=== PATIENT | female | born 1985 | race Caucasian/White ===

== ENCOUNTER 2018-04-21 00:02 | Emergency (ER) | payer OTHER, SELFPAY ==
[2018-04-21 01:02] LABS: Absolute Lymphocytes (CBC) 3.1 K/uL (0.7-4.9); Absolute Monocytes 0.5 K/uL (0.1-1.3); Basophils % 0.4 % (0-1.3); Eosinophils % 5.2 % (0-4.4); Hematocrit 41.6 % (36.0-45.0); Lymphocytes % 44.4 % (15.3-44.8); MPV 8.9 fL (7.6-11.3); Monocytes % 7.4 % (3.3-12.3); RBC Red Blood Cell Count 4.48 M/uL (3.86-4.86)
[2018-04-21 01:04] LABS: Protime INR 1.01
[2018-04-21] MEDS ORDERED: LIDOCAINE VISCOUS 2% SOLN 15 ML UDC ONE (01:05)
[2018-04-21] MEDS ORDERED: MAGNE/ALUM HYDROXD 30 ML UCUP ONE (01:05)
[2018-04-21 01:09] LABS: Albumin 3.5 g/dL (3.4-5.0); Bilirubin Direct 0.1 mg/dL (0-0.2); Bilirubin Total 0.3 mg/dL (0.2-1.0); Magnesium 1.9 mg/dL (1.8-2.4); NT PRO-BNP 98 pg/mL (<125); Potassium 3.9 mmol/L (3.5-5.1); Protein, Total 6.1 g/dL (6.4-8.2); Troponin (Emerg Dept Use Only) < 0.02 ng/mL (0.0-0.045)
--- NOTE | 2018-04-21 02:08 | EDPHYS ---
Physician Documentation [facility] Name: Deirdre Doan Age: 33 yrs Sex: Female : 1985 Arrival Date: 04/21/2018 Time: 00:05 Bed 6 Private MD: ED Physician Mark Vaughn HPI: 04/21 01:57 This 33 yrs old Female presents to ER via Wheelchair with complaints of Chest tw4 Pain, Shortness Of Breath, Dizziness. 01:57 This 33 yrs old Female presents to ER via Wheelchair with complaints of Chest tw4 Pain, Shortness Of Breath, Dizziness for one year. 01:57 The patient or guardian reports chest pain that is located primarily in the substernal tw4 area. The pain does not radiate. Associated signs and symptoms: The patient has no apparent associated signs or symptoms. The chest pain is described as a pressure. Duration: The patient or guardian reports multiple episodes, that wax and wane. Modifying factors: The symptoms are alleviated by nothing. the symptoms are aggravated by nothing. Severity of pain: At its worst the pain was mild in the emergency department the pain is unchanged. The patient has experienced similar episodes in the past, several times. pt states she been having chest pain for one year it has been worse today. 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 - Social history:: Smoking status: Patient uses tobacco products, smokes one pack cigarettes per day. - Ebola Screening: : No symptoms or risks identified at this time. ROS: 01:57 Constitutional: Negative for fever, chills, and weight loss, Respiratory: Negative for tw4 shortness of breath, cough, wheezing, and pleuritic chest pain, Abdomen/GI: Negative for abdominal pain, nausea, vomiting, diarrhea, and constipation, Back: Negative for injury and pain, MS/Extremity: Negative for injury and deformity, Skin: Negative for injury, rash, and discoloration, Neuro: Negative for headache, weakness, numbness, tingling, and seizure. 01:57 Cardiovascular: Positive for chest pain, Negative for edema, orthopnea, palpitations, paroxysmal nocturnal dyspnea. Exam: 01:57 Constitutional: This is a well developed, well nourished patient who is awake, alert, tw4 and in no acute distress. Head/Face: Normocephalic, atraumatic. Chest/axilla: Normal chest wall appearance and motion. Nontender with no deformity. No lesions are appreciated. Cardiovascular: Regular rate and rhythm with a normal S1 and S2. No gallops, murmurs, or rubs. Normal PMI, no JVD. No pulse deficits. Respiratory: Lungs have equal breath sounds bilaterally, clear to auscultation and percussion. No rales, rhonchi or wheezes noted. No increased work of breathing, no retractions or nasal flaring. Abdomen/GI: Soft, non-tender, with normal bowel sounds. No distension or tympany. No guarding or rebound. No evidence of tenderness throughout. MS/ Extremity: Pulses equal, no cyanosis. Neurovascular intact. Full, normal range of motion. Neuro: Awake and alert, GCS 15, oriented to person, place, time, and situation. Cranial nerves II-XII grossly intact. Motor strength 5/5 in all extremities. Sensory grossly intact. Cerebellar exam normal. Normal gait. Vital Signs: 00:13 BP 138 / 89; Pulse 77; Resp 16; Temp 98.2(O); Pulse Ox 100% on R/A; Weight 61.23 kg ak1 (R); Height 5 ft. 3 in. (160.02 cm) (R); Pain 10/10; 01:34 BP 102 / 65; Pulse 60; Resp 15; Pulse Ox 98% on R/A; tl2 02:45 BP 111 / 65; Pulse 67; Resp 16; Pulse Ox 97% on R/A; ea 00:13 Body Mass Index 23.91 (61.23 kg, 160.02 cm) ak1 MDM: 00:09 Patient medically screened. tw4 01:57 Differential diagnosis: acute myocardial infarction, acute pericarditis, anxiety, tw4 coronary artery disease cholecystitis, Cholelithiasis herpes zoster, pulmonary embolus, stable angina, thoracic aortic disection. Data reviewed: vital signs, EMS record. 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 Counseling: I had a detailed discussion with the patient and/or guardian regarding: the historical points, exam findings, and any diagnostic results supporting the discharge/admit diagnosis. Special discussion: Based on the patient's history, exam, and Dx evaluation, there is no indication for emergent intervention or inpatient Tx. It is understood by the patient/guardian that if the Sx's persist or worsen they need to return immediately for re-evaluation. I discussed with the patient/guardian in detail that at this point there is no indication for admission to the hospital. It is understood, however, that if the symptoms persist or worsen the patient needs to return immediately for re-evaluation. 04/21 00:10 Order name: Basic Metabolic Panel; Complete Time: :54 04/21 01:54 Interpretation: Normal except: CL 111; GLUC 110; GFR 85. 04/21 00:10 Order name: CBC with Diff; Complete Time: :54 04/21 01:54 Interpretation: Normal except: MCV 92.9; EOSINOPHIL % 5.2. 04/21 00:10 Order name: LFT's; Complete Time: :54 04/21 01:54 Interpretation: Normal except: AST 11; TP 6.1. 04/21 00:10 Order name: Magnesium; Complete Time: :54 04/21 01:54 Interpretation: Within normal limits: MG 1.9. 04/21 00:10 Order name: NT PRO-BNP; Complete Time: :54 04/21 01:54 Interpretation: Within normal limits: NT PRO-BNP 98. 04/21 00:10 Order name: PT-INR; Complete Time: :54 04/21 01:54 Interpretation: Within normal limits: PT 11.9. 04/21 00:10 Order name: Troponin (emerg Dept Use Only); Complete Time: :55 04/21 01:55 Interpretation: Within normal limits: TROPED < 0.02. 04/21 00:10 Order name: XRAY Chest (1 view) 04/21 00:10 Order name: EKG; Complete Time: 00:12 04/21 00:10 Order name: Cardiac monitoring; Complete Time: 00:37 04/21 00:10 Order name: EKG - Nurse/Tech; Complete Time: 00:37 04/21 00:10 Order name: IV Saline Lock; Complete Time: 04/21 00:10 Order name: Labs collected and sent; Complete Time: 04/21 00:10 Order name: O2 Per Protocol; Complete Time: 04/21 00:10 Order name: O2 Sat Monitoring; Complete Time: EC:57 Rate is 72 beats/min. Rhythm is regular, Normal Sinus Rhythm. QRS [place] is Normal. MA tw4 interval is normal. QRS interval is normal. QT interval is normal. No Q waves. T waves are Normal. No ST changes noted. Clinical impression: Normal ECG. Interpreted by me. Reviewed by me. Administered Medications: No medications were administered Disposition: 05:18 Chart complete. tw Disposition: 04/21/18 02:07 Discharged to Home. Impression: Chest pain, unspecified. - Condition is Stable. - Discharge Instructions: Nonspecific Chest Pain, Pain Without a Known Cause. - Medication Reconciliation Form, Thank You Letter, Antibiotic Education, Prescription Opioid Use form. - Follow up: Private Physician; When: Upon discharge from the Emergency Department; Reason: If symptoms return, Recheck today's complaints, Continuance of care. Follow up: Grant Feliciano MD; When: Upon discharge from the Emergency Department; Reason: If symptoms return, Recheck today's complaints, Continuance of care. Follow up: Joao Garcia MD; When: Upon discharge from the Emergency Department; Reason: If symptoms return, Recheck today's complaints, Continuance of care. - Problem is new. - Symptoms have improved. Signatures: Dispatcher [employer] EDMS Zenaida Greene RN RN ak1 Janie Pandya RN RN ea Wadley, Terrence, MD MD tw4 Corrections: (The following items were deleted from the chart) 02:08 02:07 04/21/2018 02:07 Discharged to Home. Impression: Chest pain, unspecified. tw4 Condition is Stable. Forms are Medication Reconciliation Form, Thank You Letter, Antibiotic Education, Prescription Opioid Use. Follow up: Private Physician; When: Upon discharge from the Emergency Department; Reason: If symptoms return, Recheck today's complaints, Continuance of care. Problem is new. Symptoms have improved. tw4 03:01 02:08 04/21/2018 02:07 Discharged to Home. Impression: Chest pain, unspecified. ea Condition is Stable. Discharge Instructions: Nonspecific Chest Pain, Pain Without a Known Cause. Forms are Medication Reconciliation Form, Thank You Letter, Antibiotic Education, Prescription Opioid Use. Follow up: Private Physician; When: Upon discharge from the Emergency Department; Reason: If symptoms return, Recheck today's complaints, Continuance of care. Follow up: Grant Feliciano; When: Upon discharge from the Emergency Department; Reason: If symptoms return, Recheck today's complaints, Continuance of care. Follow up: Joao Garcia; When: Upon discharge from the Emergency Department; Reason: If symptoms return, Recheck today's complaints, Continuance of care. Problem is new. Symptoms have improved. tw4
--- NOTE | 2018-04-21 02:08 | ER ---
Nurse's Notes [facility] Name: Deirdre Doan Age: 33 yrs Sex: Female : 1985 Arrival Date: 04/21/2018 Time: 00:05 Bed 6 Private MD: Diagnosis: Chest pain, unspecified Presentation: 04/21 00:13 Presenting complaint: Patient states: chest pain, dizziness, SOB. pt stated chest pain ak1 intermittent X1 year with increased episodes over the past "few days" pt c/o dizziness X1 day. pt c/o SOB with pain. Transition of care: patient was not received from another setting of care. Onset of symptoms is unknown. Risk Assessment: Do you want to hurt yourself or someone else? Patient reports no desire to harm self or others. Initial Sepsis Screen: Does the patient meet any 2 criteria? No. Patient's initial sepsis screen is negative. Does the patient have a suspected source of infection? No. Patient's initial sepsis screen is negative. Care prior to arrival: None. 00:13 Method Of Arrival: Wheelchair ak1 00:13 Acuity: ILDA 3 ak1 Triage Assessment: 00:15 General: Appears in no apparent distress. Behavior is calm, cooperative. 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 - Social history:: Smoking status: Patient uses tobacco products, smokes one pack cigarettes per day. - Ebola Screening: : No symptoms or risks identified at this time. Screenin:24 Abuse screen: Denies threats or abuse. Nutritional screening: No deficits noted. ea Tuberculosis screening: No symptoms or risk factors identified. Fall Risk IV access (20 points). Assessment: 00:20 General: Appears uncomfortable, Behavior is calm, cooperative, appropriate for age. ea Pain: Complains of pain in chest Pain radiates to jaw Pain currently is 7 out of 10 on a pain scale. Pain began gradually, Aggravated by increased activity. Neuro: Level of Consciousness is awake, alert, obeys commands, Oriented to person, place, time, situation. Cardiovascular: Heart tones S1 S2 present Patient's skin is warm and dry. Respiratory: Airway is patent Respiratory effort is even, unlabored, Respiratory pattern is regular, symmetrical, Breath sounds are clear bilaterally. GI: No signs and/or symptoms were reported involving the gastrointestinal system. : No signs and/or symptoms were reported regarding the genitourinary system. Derm: Skin is pink, warm \\T\\ dry. 01:35 Reassessment: Patient and/or family updated on plan of care and expected duration. Pain ea level reassessed. Patient is alert, oriented x 3, equal unlabored respirations, skin warm/dry/pink. 02:46 Reassessment: Patient and/or family updated on plan of care and expected duration. Pain ea level reassessed. Patient is alert, oriented x 3, equal unlabored respirations, skin warm/dry/pink. Discharge instruction given to patient, verbalized the understanding of instruction. Vital Signs: 00:13 BP 138 / 89; Pulse 77; Resp 16; Temp 98.2(O); Pulse Ox 100% on R/A; Weight 61.23 kg ak1 (R); Height 5 ft. 3 in. (160.02 cm) (R); Pain 10/10; 01:34 BP 102 / 65; Pulse 60; Resp 15; Pulse Ox 98% on R/A; tl2 02:45 BP 111 / 65; Pulse 67; Resp 16; Pulse Ox 97% on R/A; ea 00:13 Body Mass Index 23.91 (61.23 kg, 160.02 cm) ak1 ED Course: 00:05 Patient arrived in ED. am2 00:09 Mark Vaughn MD is Attending Physician. tw4 00:12 Janie Pandya RN is Primary Nurse. ea 00:15 Triage completed. ak1 00:15 Arm band placed on Patient placed in an exam room, on a stretcher, on pulse oximetry, ak1 Patient notified of wait time. 00:22 Inserted saline lock: 20 gauge in right antecubital area, using aseptic technique. ea Blood collected. 00:23 Patient has correct armband on for positive identification. Placed in gown. Bed in low ea position. Call light in reach. Side rails up X 1. pvc monitor on. 00:23 No provider procedures requiring assistance completed. Patient maintains SpO2 ea saturation greater than 95% on room air. 00:43 XRAY Chest (1 view) In Process Unspecified. EDMS 02:08 Grant Feliciano MD is Referral Physician. tw4 02:08 Joao Garcia MD is Referral Physician. tw4 03:00 IV discontinued, intact, bleeding controlled, No redness/swelling at site. Pressure ea dressing applied. Administered Medications: No medications were administered Outcome: 02:07 Discharge ordered by . tw4 02:58 Discharged to home ambulatory, with significant other. ea 02:58 Condition: improved 02:58 Instructed on discharge instructions, follow up and referral plans. Demonstrated understanding of instructions, follow-up care. 03:01 Patient left the ED. ea Signatures: Dispatcher [employer] EDTN Zenaida Greene, RN RN ak1 Constance Conklin RN RN tl2 Padmini Garcia Elena, RN RN Mark Julio MD MD tw4
[2018-04-21 05:17] VITALS: TEMP 98.2
[2018-04-21 05:29] VITALS: BP 111/65; O2SAT 97
--- NOTE | 2018-04-21 08:17 | RAD REPORT ---
EXAM DESCRIPTION: RAD - Chest Single View - 04/21/2018 12:35 am CLINICAL HISTORY: CHEST PAIN Chest pain. COMPARISON: No comparisons FINDINGS: Portable technique limits examination quality. The lungs are grossly clear. The heart is normal in size. No displaced fractures. IMPRESSION: No acute intrathoracic process suspected.
--- NOTE | 2018-04-21 17:10 | EKG ---
Test Date: 2018-04-21 Test Time: 00:32:54 Hardness Tester: TJ MEASUREMENT RESULTS: Intervals: Rate: 72 NE: 144 QRSD: 80 QT: 396 QTc: 433 [place]: P: 62 NE: 144 QRS: 80 T: 65 INTERPRETIVE STATEMENTS: Normal sinus rhythm Normal ECG Compared to ECG 05/13/2016 07:11:25 No significant changes Electronically Signed On 04-21-18 17:07:06 SEAFOOD TECHNOLOGY SPECIALIST by Grant Feliciano
== END 2018-04-21 03:01 | disposition home or self-care (01) ==
LOC: ER 00:02
DX: R07.9 Chest pain, unspecified (principal); R06.02 Shortness of breath; R42 Dizziness and giddiness
CPT/HCPCS: 36415; 71045; 80048; 80076; 83735; 83880; 84484; 85025; 85610; 93005; 99285

== ENCOUNTER 2018-08-06 19:39 | Emergency (ER) | payer OTHER, SELFPAY ==
[2018-08-06 20:31] LABS: Absolute Lymphocytes (CBC) 2.5 K/uL (0.7-4.9); Absolute Monocytes 0.8 K/uL (0.1-1.3); Absolute Neutrophil 7.3 K/uL (1.8-8.0); Basophils % 0.3 % (0-1.3); Hematocrit 43.3 % (36.0-45.0); Lymphocytes % 23.6 % (15.3-44.8); MPV 7.8 fL (7.6-11.3); Monocytes % 7.7 % (3.3-12.3); RBC Red Blood Cell Count 4.58 M/uL (3.86-4.86)
[2018-08-06] MEDS ORDERED: PROMETHAZINE 25 MG/ML VIAL ONE ×2 (20:33→22:19)
[2018-08-06] MEDS ORDERED: NA CHLORIDE 0.9% 1,000 ML ONE (20:34)
[2018-08-06 20:42] LABS: BUN Blood Urea Nitrogen 11 mg/dL (7-18); Bicarbonate 26 mmol/L (21-32); Glucose Level 97 mg/dL (74-106); Potassium 3.6 mmol/L (3.5-5.1); Sodium Level 139 mmol/L (136-145)
--- NOTE | 2018-08-06 20:52 | RAD REPORT ---
EXAM DESCRIPTION: CT - Head Brain Wo Cont - 08/06/2018 8:46 pm CLINICAL HISTORY: Head injury with LOC;Headache Trauma, head injury. COMPARISON: <Comparisons> TECHNIQUE: All CT scans are performed using dose optimization technique as appropriate and may inclu de automated exposure control or mA/KV adjustment according to patient size. FINDINGS: No intracranial hemorrhage, hydrocephalus or extra-axial fluid collection.No areas of brai n edema or evidence of midline shift. The paranasal sinuses and mastoids are clear. The calvarium is intact. IMPRESSION: No acute intracranial abnormality.
[2018-08-06 20:58] LABS: Urine Blood TRACE (NEG); Urine Glucose NEGATIVE (NEG); Urine Protein 1+ (NEG); Urine Specific Gravity 1.025 (1.005-1.030); Urine pH 6.5 (5.0-7.0)
--- NOTE | 2018-08-06 21:45 | ER ---
Nurse's Notes [facility] Name: Deirdre Doan Age: 33 yrs Sex: Female : 1985 Arrival Date: 08/06/2018 Time: 19:40 Bed 13 Private MD: Diagnosis: Superficial injury of head;Vomiting Presentation: 08/06 19:46 Presenting complaint: Patient states: I have been throwing up for about a week. I ed1 started the bleed out pill today because they said the baby had problems. Today when I was vomiting I hit my head on the toilet and I have a really bad headache. Transition of care: patient was not received from another setting of care. Onset of symptoms was July 30, 2018. Risk Assessment: Do you want to hurt yourself or someone else? Patient reports no desire to harm self or others. Initial Sepsis Screen: Does the patient meet any 2 criteria? No. Patient's initial sepsis screen is negative. Does the patient have a suspected source of infection? No. Patient's initial sepsis screen is negative. Care prior to arrival: Medication(s) given: zofran. 19:46 Method Of Arrival: Ambulatory ed1 19:46 Acuity: ILDA 3 ed1 Triage Assessment: 19:49 General: Appears uncomfortable, Behavior is crying. Pain: Complains of pain in head ed1 Pain currently is 7 out of 10 on a pain scale. Quality of pain is described as throbbing, Pain began 2-3 days ago. GI: Reports constipation, vomiting. : Reports vaginal bleeding that is bright red, spotty. CPC: 23:45 LMP N/A - unable to recall rv Historical: - Allergies: 19:49 No Known Allergies; ed1 - PMHx: 19:49 None; ed1 - PSHx: 19:49 Appendectomy; Tonsillectomy; ed1 - Immunization history:: Adult Immunizations up to date. - Social history:: Smoking status: Patient uses tobacco products, smokes one-half pack cigarettes per day. - Ebola Screening: : Patient negative for fever greater than or equal to 101.5 degrees Fahrenheit, and additional compatible Ebola Virus Disease symptoms Patient denies exposure to infectious person Patient denies travel to an Ebola-affected area in the 21 days before illness onset No symptoms or risks identified at this time. Screenin:08 Abuse screen: Denies threats or abuse. Denies injuries from another. Nutritional rv screening: No deficits noted. Tuberculosis screening: No symptoms or risk factors identified. Fall Risk None identified. Assessment: 20:07 General: Appears in no apparent distress. uncomfortable, Behavior is calm, cooperative. rv Pain: Complains of pain in RUQ PAIN. Neuro: Level of Consciousness is awake, alert, obeys commands, Oriented to person, place, time, situation. Cardiovascular: Patient's skin is warm and dry. Respiratory: Airway is patent. GI: Pt is actively vomiting bile, Reports upper abdominal pain, nausea, vomiting. : No signs and/or symptoms were reported regarding the genitourinary system. EENT: No signs and/or symptoms were reported regarding the EENT system. Derm: Skin is intact. Musculoskeletal: No signs and/or symptoms reported regarding the musculoskeletal system. 21:23 Reassessment: Patient appears in no apparent distress at this time. Patient and/or rv family updated on plan of care and expected duration. Pain level reassessed. Patient is alert, oriented x 3, equal unlabored respirations, skin warm/dry/pink. PATIENT HAS NOT VOMITED SINCE AFTER ADMINISTERING THE MEDICINE. STILL COMPLAINING OF HEADACHE AND ABDOMINAL PAIN. Patient states feeling better. Patient states symptoms have improved. 22:40 Reassessment: Patient appears in no apparent distress at this time. Patient and/or cc3 family updated on plan of care and expected duration. Pain level reassessed. Patient is alert, oriented x 3, equal unlabored respirations, skin warm/dry/pink. SYED Wu discharged the patient home with prescription given. IV cannula removed and patient left ER vitally stable and ambulatory, steady gait and said her is in the lobby waiting for her. Vital Signs: 19:49 BP 121 / 68; Pulse 88; Resp 20; Temp 98.8; Pulse Ox 98% on R/A; Weight 58.97 kg; Height ed1 5 ft. 3 in. (160.02 cm); Pain 7/10; 21:24 BP 109 / 64; Pulse 72; Resp 17; Temp 98.5; Pulse Ox 99% ; rv 22:30 BP 108 / 58; Pulse 75; Resp 18 S; Pulse Ox 99% on R/A; cc3 19:49 Body Mass Index 23.03 (58.97 kg, 160.02 cm) ed1 ED Course: 19:40 Patient arrived in ED. am2 19:48 Triage completed. ed1 19:51 Arm band placed on right wrist. ed1 19:53 Regino Brian RN is Primary Nurse. rv 20:01 Nehemiah Wu NP is PHCP. pm1 20:01 Landen Palacios MD is Attending Physician. pm1 20:06 Inserted saline lock: 22 gauge in left antecubital area, using aseptic technique. Blood rv collected. Missed attempt(s): 20 gauge in right antecubital area. 20:08 Patient has correct armband on for positive identification. Placed in gown. Bed in low rv position. Call light in reach. Side rails up X 1. Pulse ox on. NIBP on. 20:45 CT completed. Patient tolerated procedure well. Patient moved to CT. Patient moved back nj from CT. 20:46 CT Head Brain wo Cont In Process Unspecified. EDMS 22:38 No provider procedures requiring assistance completed. IV discontinued, intact, cc3 bleeding controlled, No redness/swelling at site. Pressure dressing applied. Administered Medications: 20:23 Drug: Phenergan 12.5 mg Route: IVP; Site: left antecubital; rv 21:22 Follow up: Response: Nausea is decreased; Vomiting decreased rv 20:24 Drug: NS 0.9% 1000 ml Route: IV; Rate: 1000 ml; Site: left antecubital; rv 22:20 Drug: Phenergan 12.5 mg Route: IVP; Site: left antecubital; cc3 22:38 Follow up: Response: No adverse reaction; Nausea is decreased cc3 Outcome: 21:44 Discharge ordered by . pm1 22:38 Discharged to home ambulatory. cc3 22:38 Condition: stable 22:38 Discharge instructions given to patient, Instructed on discharge instructions, follow up and referral plans. medication usage, Demonstrated understanding of instructions, follow-up care, medications, Prescriptions given X 2. 22:42 Patient left the ED. cc3 Signatures: Dispatcher [employer] EDMS Naomie Chaudhari RN RN ed1 Nehemiah Wu, SYED BAND ATTACHER pm1 Usman Christina Amanda am2 Regino Brian RN RN Gabi Campos cc3 Corrections: (The following items were deleted from the chart) 22:42 22:39 Reassessment: Patient appears in no apparent distress at this time. Patient cc3 and/or family updated on plan of care and expected duration. Pain level reassessed. Patient is alert, oriented x 3, equal unlabored respirations, skin warm/dry/pink. SYED Wu discharged the patient home with prescription given. IV cannula removed and patient left ER vitally stable and ambulatory, steady gait and said her is in the lobby waiting for her. cc3
--- NOTE | 2018-08-06 21:46 | EDPHYS ---
Physician Documentation [facility] Name: Deirdre Doan Age: 33 yrs Sex: Female : 1985 Arrival Date: 08/06/2018 Time: 19:40 Bed 13 Private MD: REINA Physician Landen Palacios HPI: 08/06 21:05 This 33 yrs old Female presents to ER via Ambulatory with complaints of pm1 Vomiting. 21:05 The patient presents to the emergency department with vomiting, and head injury. pm1 21:50 Onset: The symptoms/episode began/occurred Vomiting for 1 week. Head injury today. pm1 Possible causes: . The symptoms are aggravated by nothing. The symptoms are alleviated by nothing. patient has not had relief with her vomiting by taking zofran. Associated signs and symptoms: Pertinent positives: abdominal pain, Pertinent negatives: constipation, diarrhea, dysuria, fever. Severity of symptoms: in the emergency department the symptoms are unchanged. The patient has not recently seen a physician. Patient presenting today with head injury. Patient has been vomiting for 1 week. While vomiting, the patient hit her head against the toilet and reports possible LOC. Patient is currently 5 weeks . Was told that there was possible deformity and is currently taking misoprostol to terminate the . Started misoprostol yesterday. 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 - Social history:: Smoking status: Patient uses tobacco products, smokes one-half pack cigarettes per day. - Ebola Screening: : Patient negative for fever greater than or equal to 101.5 degrees Fahrenheit, and additional compatible Ebola Virus Disease symptoms Patient denies exposure to infectious person Patient denies travel to an Ebola-affected area in the 21 days before illness onset No symptoms or risks identified at this time. ROS: 21:50 Constitutional: Negative for fever, chills, and weight loss, Eyes: Negative for injury, pm1 pain, redness, and discharge, ENT: Negative for injury, pain, and discharge, Neck: Negative for injury, pain, and swelling, Cardiovascular: Negative for chest pain, palpitations, and edema, Respiratory: Negative for shortness of breath, cough, wheezing, and pleuritic chest pain, Back: Negative for injury and pain, : Negative for injury, bleeding, discharge, and swelling, MS/Extremity: Negative for injury and deformity, Skin: Negative for injury, rash, and discoloration, Neuro: Negative for headache, weakness, numbness, tingling, and seizure. 21:50 Abdomen/GI: Positive for abdominal pain, nausea and vomiting, Negative for diarrhea, constipation. Exam: 21:50 Constitutional: This is a well developed, well nourished patient who is awake, alert, pm1 and in no acute distress. Head/Face: Normocephalic, atraumatic. Eyes: Pupils equal round and reactive to light, extra-ocular motions intact. Lids and lashes normal. Conjunctiva and sclera are non-icteric and not injected. Cornea within normal limits. Periorbital areas with no swelling, redness, or edema. ENT: Nares patent. No nasal discharge, no septal abnormalities noted. Tympanic membranes are normal and external auditory canals are clear. Oropharynx with no redness, swelling, or masses, exudates, or evidence of obstruction, uvula midline. Mucous membranes moist. Neck: Trachea midline, no thyromegaly or masses palpated, and no cervical lymphadenopathy. Supple, full range of motion without nuchal rigidity, or vertebral point tenderness. No Meningismus. Chest/axilla: Normal chest wall appearance and motion. Nontender with no deformity. No lesions are appreciated. Cardiovascular: Regular rate and rhythm with a normal S1 and S2. No gallops, murmurs, or rubs. Normal PMI, no JVD. No pulse deficits. Respiratory: Lungs have equal breath sounds bilaterally, clear to auscultation and percussion. No rales, rhonchi or wheezes noted. No increased work of breathing, no retractions or nasal flaring. Abdomen/GI: Soft, non-tender, with normal bowel sounds. No distension or tympany. No guarding or rebound. No evidence of tenderness throughout. Back: No spinal tenderness. No costovertebral tenderness. Full range of motion. Skin: Warm, dry with normal turgor. Normal color with no rashes, no lesions, and no evidence of cellulitis. MS/ Extremity: Pulses equal, no cyanosis. Neurovascular intact. Full, normal range of motion. 21:50 Neuro: Orientation: is normal, Motor: is normal, Sensation: is normal, no obvious gross deficits. Vital Signs: 19:49 BP 121 / 68; Pulse 88; Resp 20; Temp 98.8; Pulse Ox 98% on R/A; Weight 58.97 kg; Height ed1 5 ft. 3 in. (160.02 cm); Pain 7/10; 21:24 BP 109 / 64; Pulse 72; Resp 17; Temp 98.5; Pulse Ox 99% ; rv 22:30 BP 108 / 58; Pulse 75; Resp 18 S; Pulse Ox 99% on R/A; cc3 19:49 Body Mass Index 23.03 (58.97 kg, 160.02 cm) ed1 MDM: 20:07 Patient medically screened. pm1 21:32 Data reviewed: vital signs. Data interpreted: Pulse oximetry: on room air is 99 %. pm1 Interpretation: normal. Counseling: I had a detailed discussion with the patient and/or guardian regarding: the historical points, exam findings, and any diagnostic results supporting the discharge/admit diagnosis, lab results, radiology results, the need for outpatient follow up, to return to the emergency department if symptoms worsen or persist or if there are any questions or concerns that arise at home. 08/06 20:15 Order name: Basic Metabolic Panel; Complete Time: 20:58 pm1 08/06 20:15 Order name: CBC with Diff; Complete Time: 20:35 pm1 08/06 20:15 Order name: CT Head Brain wo Cont; Complete Time: 20:58 pm1 08/06 20:49 Order name: Urine Dipstick--Ancillary (enter results); Complete Time: 21:05 2 08/06 20:49 Order name: Urine --Ancillary (enter results); Complete Time: 21:05 [facility] 08/06 20:15 Order name: IV Saline Lock; Complete Time: 20:24 pm1 08/06 20:15 Order name: Labs collected and sent; Complete Time: 20:24 pm1 08/06 20:15 Order name: Urine Dipstick-Ancillary (obtain specimen); Complete Time: 20:39 pm1 08/06 20:15 Order name: Urine Test (obtain specimen); Complete Time: 20:39 pm1 Administered Medications: 20:23 Drug: Phenergan 12.5 mg Route: IVP; Site: left antecubital; rv 21:22 Follow up: Response: Nausea is decreased; Vomiting decreased rv 20:24 Drug: NS 0.9% 1000 ml Route: IV; Rate: 1000 ml; Site: left antecubital; rv 22:20 Drug: Phenergan 12.5 mg Route: IVP; Site: left antecubital; cc3 22:38 Follow up: Response: No adverse reaction; Nausea is decreased cc3 Disposition: 08/07 07:21 Co-signature as Attending Physician, Landen Palacios MD I agree with the assessment and [facility] plan of care. Disposition: 08/06/18 21:44 Discharged to Home. Impression: Superficial injury of head, Vomiting. - Condition is Stable. - Discharge Instructions: Head Injury, Adult, Nausea and Vomiting, Adult, Viral Gastroenteritis, Adult. - Prescriptions for Phenergan 25 mg Rectal Suppository - insert 1 suppository by RECTAL route every 6 hours As needed; 12 suppository. promethazine 25 mg Oral Tablet - take 1 tablet by ORAL route every 6 hours As needed; 20 tablet. - Medication Reconciliation Form, Thank You Letter, Antibiotic Education, Prescription Opioid Use form. - Follow up: Emergency Department; When: As needed; Reason: Worsening of condition. Follow up: Private Physician; When: 2 - 3 days; Reason: Recheck today's complaints, Continuance of care, Re-evaluation by your physician. - Problem is new. - Symptoms have improved. Signatures: Dispatcher [employer] EDLanden Lino MD MD cha Riggs, Erika RN RN ed1 Nehemiah Wu, SPECIAL NEEDS CAREGIVER SPECIAL NEEDS CAREGIVER pm1 Regino Brian RN RN Gabi Campos cc3 Corrections: (The following items were deleted from the chart) 08/06 22:42 21:44 08/06/2018 21:44 Discharged to Home. Impression: Superficial injury of head; cc3 Vomiting. Condition is Stable. Forms are Medication Reconciliation Form, Thank You Letter, Antibiotic Education, Prescription Opioid Use. Follow up: Emergency Department; When: As needed; Reason: Worsening of condition. Follow up: Private Physician; When: 2 - 3 days; Reason: Recheck today's complaints, Continuance of care, Re-evaluation by your physician. Problem is new. Symptoms have improved. pm1
[2018-08-06 23:12] VITALS: TEMP 98.5; O2SAT 99
[2018-08-06 23:13] VITALS: BP 108/58
== END 2018-08-06 22:42 | disposition home or self-care (01) ==
LOC: ER 19:39
DX: O26.891 Other specified pregnancy related conditions, first trimester (principal); S00.90XA Unspecified superficial injury of unspecified part of head, initial encounter; W22.8XXA Striking against or struck by other objects, initial encounter; Y93.89 Activity, other specified; Y92.091 Bathroom in other non-institutional residence as the place of occurrence of the external cause; R11.10 Vomiting, unspecified
CPT/HCPCS: 36415; 70450; 80048; 81003; 81025; 85025; 96374; 99284; J2550; J7030

== ENCOUNTER 2018-08-07 09:23 | Inpatient (IN) | payer OTHER, SELFPAY ==
[2018-08-07 10:26] LABS: Absolute Lymphocytes (CBC) 1.6 K/uL (0.7-4.9); Absolute Monocytes 0.6 K/uL (0.1-1.3); Absolute Neutrophil 7.4 K/uL (1.8-8.0); Basophils % 0.2 % (0-1.3); Eosinophils % 0.1 % (0-4.4); Hematocrit 42.3 % (36.0-45.0); Lymphocytes % 16.5 % (15.3-44.8); MPV 7.8 fL (7.6-11.3); Monocytes % 6.2 % (3.3-12.3); RBC Red Blood Cell Count 4.53 M/uL (3.86-4.86)
--- NOTE | 2018-08-07 10:39 | RAD REPORT ---
EXAM DESCRIPTION: US - Abdomen Exam Limited - 08/07/2018 10:28 am CLINICAL HISTORY: abdominal pain, vomiting COMPARISON: No comparisons FINDINGS: The gallbladder demonstrates no gallstones. No pericholecystic fluid or gallbladder wall t hickening. The common bile duct is normal measuring 5-6 mm. The liver demonstrates no findings of intrahepatic biliary dilatation. IMPRESSION: Unremarkable examination.
[2018-08-07 11:05] LABS: ALT/SGPT 18 U/L (12-78); AST/SGOT 8 U/L (15-37); Albumin 3.6 g/dL (3.4-5.0); Alkaline Phosphatase 44 U/L (45-117); BUN Blood Urea Nitrogen 11 mg/dL (7-18); Bicarbonate 24 mmol/L (21-32); Bilirubin Direct 0.2 mg/dL (0-0.2); Bilirubin Total 0.7 mg/dL (0.2-1.0); Glucose Level 116 mg/dL (74-106); Lipase 123 U/L (73-393); Potassium 3.8 mmol/L (3.5-5.1); Protein, Total 6.5 g/dL (6.4-8.2); Sodium Level 139 mmol/L (136-145)
[2018-08-07] MEDS ORDERED: METOCLOPRAMIDE 10 MG/2mL INJ ONE (11:15)
[2018-08-07] MEDS ORDERED: FENTANYL CITR 100 MCG/2 ML ONE (11:16)
[2018-08-07] MEDS ORDERED: DIPHENHYDRAMINE 50 MG/ML VIAL ONE (11:17)
[2018-08-07] MEDS ORDERED: NA CHLORIDE 0.9% 1,000 ML ONE ×2 (11:17→12:31)
[2018-08-07] MEDS ORDERED: NA CHLORIDE 0.9% 100 ML IV ONE (11:17)
--- NOTE | 2018-08-07 12:54 | RAD REPORT ---
EXAM DESCRIPTION: CTAbdomen Pelvis W Contrast - 08/07/2018 12:39 pm CLINICAL HISTORY: Abdominal pain. right flank pain, IV ONLY COMPARISON: Abdomen Exam Limited dated 08/07/2018 TECHNIQUE: Biphasic CT imaging of the abdomen and pelvis was performed with 100 ml non-ionic IV cont rast. All CT scans are performed using dose optimization technique as appropriate and may include automated exposure control or mA/KV adjustment according to patient size. FINDINGS: The lung bases are clear. The liver, spleen, pancreas, adrenal glands and kidneys are within normal limits. No bowel obstruction, free air, free fluid or abscess. Cholecystectomy clips. No evidence of signif icant lymphadenopathy. The uterus and cervix appears edematous with trace fluid in the pelvis. Fluid is also noted in the en dometrial stripe measuring up to 3 cm. IMPRESSION: Edematous appearance to the gynecologic organs with fluid in the endometrium and mild fl uid in the pelvis noted. Advise clinical correlation for pelvic inflammatory disease.
[2018-08-07 15:26] LABS: Urine Blood TRACE (NEG); Urine Glucose NEGATIVE (NEG); Urine Protein NEGATIVE (NEG)
[2018-08-07 15:27] LABS: Urine Bacteria <20 /HPF (<20); Urine Culture Reflex Order NOT NEEDED; Urine RBC <5 /HPF (NONE SEEN)
--- NOTE | 2018-08-07 15:55 | EDPHYS ---
Physician Documentation [facility] Name: Deirdre Doan Age: 33 yrs Sex: Female : 1985 Arrival Date: 08/07/2018 Time: 09:24 Bed 13 Private MD: ED Physician Ray Worrell HPI: 08/07 10:09 This 33 yrs old Female presents to ER via Ambulatory with complaints of jmm Vomiting. 10:09 The patient presents to the emergency department with nausea, vomiting, abdominal pain, jmm of the right upper quadrant. Onset: The symptoms/episode began/occurred 1 week(s) ago. This is a 33 year old female with no chronic medical conditions that presents to the ED with complaints of vomiting for the past week with abdominal pain. Patient states she is currently taking cytotec after a miscarriage. Denies diarrhea. Denies lower abdominal pain. Denies fever. Denies infectious exposure. . 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 - Social history:: Smoking status: Patient uses tobacco products, smokes one-half pack cigarettes per day. - Ebola Screening: : Patient denies exposure to infectious person Patient denies travel to an Ebola-affected area in the 21 days before illness onset. ROS: 10:09 Constitutional: Negative for fever, chills, and weight loss, Cardiovascular: Negative jmm for chest pain, palpitations, and edema, Respiratory: Negative for shortness of breath, cough, wheezing, and pleuritic chest pain. 10:09 Abdomen/GI: Positive for abdominal pain, nausea and vomiting. 10:09 All other systems are negative. Exam: 10:09 Head/Face: atraumatic. Eyes: EOMI, no conjunctival erythema appreciated ENT: Moist jmm Mucus Membranes Neck: Trachea midline, Supple Chest/axilla: Normal chest wall appearance and motion. Cardiovascular: Regular rate and rhythm. No edema appreciated Respiratory: Normal respirations, no respiratory distress appreciated 10:09 Back: Normal ROM Skin: General appearance color normal MS/ Extremity: Moves all extremities, no obvious deformities appreciated, no edema noted to the lower extremities Neuro: Awake and alert, normal gait Psych: Behavior is normal, Mood is normal, Patient is cooperative and pleasant 10:09 Constitutional: The patient appears alert, awake, uncomfortable. 10:09 Abdomen/GI: Inspection: abdomen appears normal, Bowel sounds: normal, Palpation: soft, mild abdominal tenderness, in the right upper quadrant. Vital Signs: 09:49 BP 115 / 73; Pulse 90; Resp 16; Temp 98.7(TE); Pulse Ox 98% on R/A; Weight 56.7 kg; ss Height 5 ft. 4 in. (162.56 cm); Pain 7/10; 11:15 BP 114 / 74; Pulse 81; Resp 16; Pulse Ox 100% on R/A; aj1 13:01 BP 112 / 62; Pulse 76; Resp 16; Pulse Ox 99% on R/A; aj1 14:38 BP 105 / 70; Pulse 71; Resp 18; Pulse Ox 100% on R/A; aj1 15:30 BP 107 / 69; Pulse 75; Resp 16; Temp 97.9; Pulse Ox 100% on R/A; aj1 16:32 BP 113 / 74; Pulse 79; Resp 16; Pulse Ox 100% ; aj1 17:30 BP 106 / 65; Pulse 80; Resp 16; Pulse Ox 98% on R/A; aj1 18:08 BP 104 / 66; Pulse 83; Resp 18; Pulse Ox 99% on R/A; aj1 09:49 Body Mass Index 21.46 (56.70 kg, 162.56 cm) ss MDM: 10:07 Patient medically screened. [facility] 15:50 ED course: Patient continues to have epigastric pain with episodes of vomiting. [facility] 15:53 Data reviewed: vital signs, nurses notes. Counseling: I had a detailed discussion with [facility] the patient and/or guardian regarding: the historical points, exam findings, and any diagnostic results supporting the discharge/admit diagnosis, lab results, radiology results, the need for further work-up and treatment in the hospital. ED course: I discussed the patient with Dr. Lewis whom accepted admission. . 08/07 10:07 Order name: Basic Metabolic Panel; Complete Time: 11:12 [facility] 08/07 10:07 Order name: CBC with Diff; Complete Time: 10:28 [facility] 08/07 10:07 Order name: Creatinine for Radiology; Complete Time: 10:46 [facility] 08/07 10:07 Order name: Hepatic Function; Complete Time: 11:12 [facility] 08/07 10:07 Order name: Lipase; Complete Time: 11:12 [facility] 08/07 14:35 Order name: Urine Microscopic Only; Complete Time: 15:31 1 08/07 10:08 Order name: US Abdomen Limited; Complete Time: 10:46 [facility] 08/07 11:46 Order name: CT Abd/Pelvis - W/Contrast; Complete Time: 12:55 [facility] 08/07 15:02 Order name: HCG-Quantitative; Complete Time: 16:02 [facility] 08/07 15:20 Order name: Urine Dipstick--Ancillary (enter results); Complete Time: 15:31 08/07 15:20 Order name: Urine --Ancillary (enter results); Complete Time: 15:31 08/07 10:07 Order name: IV Saline Lock; Complete Time: 10:47 [facility] 08/07 10:07 Order name: Labs collected and sent; Complete Time: 11:00 [facility] 08/07 10:08 Order name: Urine Dipstick-Ancillary (obtain specimen); Complete Time: 14:34 [facility] 08/07 13:08 Order name: PO challenge; Complete Time: 14:23 [facility] Administered Medications: 11:14 Drug: NS 0.9% 1000 ml Route: IV; Rate: 1 bolus; Site: right forearm; aj1 12:15 Follow up: IV Status: Completed infusion; IV Intake: 1000ml aj1 11:14 Drug: Reglan 10 mg Route: IVP; Site: right antecubital; aj1 12:15 Follow up: Response: No adverse reaction aj1 11:14 Drug: diphenhydrAMINE 12.5 mg Route: IVP; Site: right antecubital; aj1 12:15 Follow up: Response: No adverse reaction aj1 11:14 Drug: fentaNYL (PF) 25 mcg Route: IVP; Site: right antecubital; aj1 12:15 Follow up: Response: No adverse reaction; Pain is decreased aj1 12:20 Drug: NS 0.9% 1000 ml Route: IV; Rate: 1 bolus; Site: left forearm; aj1 14:23 Follow up: IV Status: Completed infusion; IV Intake: 1000ml [facility] 13:12 Drug: Promethazine 12.5 mg Route: IVP; Site: right forearm; [facility] 14:23 Follow up: Response: No adverse reaction; Nausea is decreased aj1 Disposition: 08/08 16:29 Co-signature as Attending Physician, Ray Worrell MD. Disposition: 08/07/18 15:55 Hospitalization ordered by Yuan Lewis for Observation. Preliminary diagnosis are Intractable Vomiting, Epigastric abdominal tenderness. - Bed requested for Telemetry/MedSurg (observation). - Status is Observation. aj1 - Condition is Stable. - Problem is new. - Symptoms are unchanged. UTI on Admission? No Signatures: Dispatcher [employer] EDDebbie Fair RN RN aj Antonio Medel PA PA jmm Smirch, Shelby RN PATRICIA Ray Worrell MD MD Debbie Sams Corrections: (The following items were deleted from the chart) 08/07 17:12 15:55 Hospitalization Ordered by Yuan Lewis DO for Observation. Preliminary eb diagnosis is Intractable Vomiting; Epigastric abdominal tenderness. Bed requested for Telemetry/MedSurg (observation). Status is Observation. Condition is Stable. Problem is new. Symptoms are unchanged. UTI on Admission? No. karlee 18:10 17:12 08/07/2018 15:55 Hospitalization Ordered by Yuan Lewis DO for Observation. aj Preliminary diagnosis is Intractable Vomiting; Epigastric abdominal tenderness. Bed requested for Telemetry/MedSurg (observation). Status is Observation. Condition is Stable. Problem is new. Symptoms are unchanged. UTI on Admission? No. eb
--- NOTE | 2018-08-07 15:55 | ER ---
Nurse's Notes [facility] Name: Deirdre Doan Age: 33 yrs Sex: Female : 1985 Arrival Date: 08/07/2018 Time: 09:24 Bed 13 [facility] MD: Diagnosis: Intractable Vomiting;Epigastric abdominal tenderness Presentation: 08/07 09:47 Presenting complaint: Patient states: RUQ pain with N/V x 7 days that is worse when ss eating food. Pt reports she is currently taking medication to help "bleed out" her miscarriage. Transition of care: patient was not received from another setting of care. Onset of symptoms was July 30, 2018. Risk Assessment: Do you want to hurt yourself or someone else? Patient reports no desire to harm self or others. Initial Sepsis Screen: Does the patient meet any 2 criteria? No. Patient's initial sepsis screen is negative. Does the patient have a suspected source of infection? No. Patient's initial sepsis screen is negative. Care prior to arrival: None. 09:47 Method Of Arrival: Ambulatory ss 09:47 Acuity: ILDA 3 ss 09:49 Note Pt was seen in ER last night for same symptoms, but reports that they could not do ss a CT because of her non viable . 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 - Social history:: Smoking status: Patient uses tobacco products, smokes one-half pack cigarettes per day. - Ebola Screening: : Patient denies exposure to infectious person Patient denies travel to an Ebola-affected area in the 21 days before illness onset. Screenin:05 Abuse screen: Denies threats or abuse. Denies injuries from another. Nutritional aj1 screening: No deficits noted. Tuberculosis screening: No symptoms or risk factors identified. 18:09 Fall Risk No fall in past 12 months (0 pts). No secondary diagnosis (0 pts). IV access aj1 (20 points). Ambulatory Aid- None/Bed Rest/Nurse Assist (0 pts). Gait- Normal/Bed Rest/Wheelchair (0 pts) Mental Status- Oriented to own ability (0 pts). Total Suarez Fall Scale indicates No Risk (0-24 pts). Assessment: 10:05 General: Appears uncomfortable, Behavior is cooperative, anxious, crying, restless. aj1 Pain: Complains of pain in right upper quadrant Pain does not radiate. Pain currently is 10 out of 10 on a pain scale. Pain began one week ago Aggravated by eating, drinking. Neuro: Level of Consciousness is awake, alert, obeys commands, Oriented to person, place, time, situation. Cardiovascular: Patient's skin is warm and dry. Respiratory: Airway is patent Respiratory effort is even, unlabored, Respiratory pattern is regular, symmetrical. GI: Abdomen is flat, non-distended, Abd is soft X 4 quads Abdomen is tender to palpation in right upper quadrant Reports nausea, vomiting, Patient currently denies diarrhea. : No signs and/or symptoms were reported regarding the genitourinary system. EENT: No signs and/or symptoms were reported regarding the EENT system. Derm: No signs and/or symptoms reported regarding the dermatologic system. Skin is pink, warm \\T\\ dry. normal. Musculoskeletal: No signs and/or symptoms reported regarding the musculoskeletal system. Circulation, motion, and sensation intact. 10:21 Reassessment: Patient transported to [facility] via wheelchair. aj1 11:15 Reassessment: Patient appears in no apparent distress at this time. No changes from aj1 previously documented assessment. Patient and/or family updated on plan of care and expected duration. Pain level reassessed. Patient is alert, oriented x 3, equal unlabored respirations, skin warm/dry/pink. 12:25 Reassessment: Patient transported to [place] via wheelchair. aj1 13:00 Reassessment: Patient and/or family updated on plan of care and expected duration. Pain aj1 level reassessed. Reassessment: Patient reports that she is still having nausea and her pain is coming back. Notified ALLEN Caraballo. General: Appears in no apparent distress. uncomfortable, Behavior is calm, cooperative, appropriate for age. Neuro: Level of Consciousness is awake, alert, obeys commands. Cardiovascular: Patient's skin is warm and dry. Respiratory: Airway is patent Respiratory effort is even, unlabored, Respiratory pattern is regular, symmetrical. 14:00 Reassessment: Patient appears in no apparent distress at this time. No changes from aj1 previously documented assessment. Patient and/or family updated on plan of care and expected duration. Pain level reassessed. Patient is alert, oriented x 3, equal unlabored respirations, skin warm/dry/pink. 14:34 Reassessment: Patient states that she tried to drink the Sprite provided for her but as aj1 soon as she tried to starting drinking something it made her stomach hurt. 15:30 Reassessment: Patient and/or family updated on plan of care and expected duration. Pain aj1 level reassessed. General: Appears in no apparent distress. comfortable, Behavior is calm, cooperative, appropriate for age. Neuro: Level of Consciousness is awake, alert, obeys commands, Oriented to person, place, time, situation. Cardiovascular: Patient's skin is warm and dry. Respiratory: Airway is patent Respiratory effort is even, unlabored, Respiratory pattern is regular, symmetrical. GI: Abdomen is flat, non-distended. Derm: Skin is pink, warm \\T\\ dry. normal. Musculoskeletal: Circulation, motion, and sensation intact. 16:31 Reassessment: Patient appears in no apparent distress at this time. No changes from aj1 previously documented assessment. Patient and/or family updated on plan of care and expected duration. Pain level reassessed. Patient is alert, oriented x 3, equal unlabored respirations, skin warm/dry/pink. 17:30 Reassessment: Patient appears in no apparent distress at this time. No changes from aj1 previously documented assessment. Patient and/or family updated on plan of care and expected duration. Pain level reassessed. Patient is alert, oriented x 3, equal unlabored respirations, skin warm/dry/pink. 18:07 Reassessment: Patient appears in no apparent distress at this time. No changes from aj1 previously documented assessment. Patient and/or family updated on plan of care and expected duration. Pain level reassessed. Patient is alert, oriented x 3, equal unlabored respirations, skin warm/dry/pink. Vital Signs: 09:49 BP 115 / 73; Pulse 90; Resp 16; Temp 98.7(TE); Pulse Ox 98% on R/A; Weight 56.7 kg; ss Height 5 ft. 4 in. (162.56 cm); Pain 7/10; 11:15 BP 114 / 74; Pulse 81; Resp 16; Pulse Ox 100% on R/A; aj1 13:01 BP 112 / 62; Pulse 76; Resp 16; Pulse Ox 99% on R/A; aj1 14:38 BP 105 / 70; Pulse 71; Resp 18; Pulse Ox 100% on R/A; aj1 15:30 BP 107 / 69; Pulse 75; Resp 16; Temp 97.9; Pulse Ox 100% on R/A; aj1 16:32 BP 113 / 74; Pulse 79; Resp 16; Pulse Ox 100% ; aj1 17:30 BP 106 / 65; Pulse 80; Resp 16; Pulse Ox 98% on R/A; aj1 18:08 BP 104 / 66; Pulse 83; Resp 18; Pulse Ox 99% on R/A; aj1 09:49 Body Mass Index 21.46 (56.70 kg, 162.56 cm) ED Course: 09:24 Patient arrived in ED. as 09:48 Triage completed. 09:49 Arm band placed on right wrist. 09:53 Debbie Dawson, PATRICIA is Primary Nurse. aj1 10:03 Antonio Medel PA is PHCP. jmm 10:03 Ray Worrell MD is Attending Physician. jmm 10:05 Patient has correct armband on for positive identification. Pulse ox on. NIBP on. Warm aj1 blanket given. 10:05 No provider procedures requiring assistance completed. aj1 10:10 Missed attempt(s): 22 gauge in left antecubital area. Bleeding controlled, band aid aj1 applied, catheter tip intact. 10:15 Missed attempt(s): 20 gauge in left forearm. Bleeding controlled, band aid applied, aj1 catheter tip intact. 10:20 Initial lab(s) drawn, by oh, sent to lab. aj1 10:29 US Abdomen Limited In Process Unspecified. EDMS 10:40 Missed attempt(s): 20 gauge in right hand. Bleeding controlled, band aid applied, aa5 catheter tip intact. 10:45 Inserted saline lock: 20 gauge in right forearm, using aseptic technique. aa5 12:42 CT Abd/Pelvis - W/Contrast In Process Unspecified. EDMS 15:54 Yuan Lewis DO is Hospitalizing Provider. jmm 18:08 Patient admitted, IV remains in place. aj1 Administered Medications: 11:14 Drug: NS 0.9% 1000 ml Route: IV; Rate: 1 bolus; Site: right forearm; aj1 12:15 Follow up: IV Status: Completed infusion; IV Intake: 1000ml aj1 11:14 Drug: Reglan 10 mg Route: IVP; Site: right antecubital; aj1 12:15 Follow up: Response: No adverse reaction aj1 11:14 Drug: diphenhydrAMINE 12.5 mg Route: IVP; Site: right antecubital; aj1 12:15 Follow up: Response: No adverse reaction aj1 11:14 Drug: fentaNYL (PF) 25 mcg Route: IVP; Site: right antecubital; aj1 12:15 Follow up: Response: No adverse reaction; Pain is decreased aj1 12:20 Drug: NS 0.9% 1000 ml Route: IV; Rate: 1 bolus; Site: left forearm; aj1 14:23 Follow up: IV Status: Completed infusion; IV Intake: 1000ml aj1 13:12 Drug: Promethazine 12.5 mg Route: IVP; Site: right forearm; aj1 14:23 Follow up: Response: No adverse reaction; Nausea is decreased aj1 Intake: 12:15 IV: 1000ml; Total: 1000ml. aj1 14:23 IV: 1000ml; Total: 2000ml. aj1 Outcome: 15:55 Decision to Hospitalize by Provider. mumtaz 17:58 Admitted to Med/surg accompanied by tech, via wheelchair, room 412, with chart, Report sg called to Joshua GOMEZ 17:58 Condition: good 17:58 Instructed on the need for admit, safety practices. 18:10 Patient left the ED. aj1 Signatures: Dispatcher [employer] Debbie Cisneros RN RN aj1 Meek Powers RN RN Antonio Wild PA PA jmm Martinez, Amelia as Calderon, Audri RN RN aa5 Carla Erickson RN RN ss
--- NOTE | 2018-08-07 16:38 | P.HP ---
Certification for Inpatient Patient admitted to: Observation With expected LOS: <2 Midnights Patient will require the following post-hospital care: None Practitioner: I am a practitioner with admitting privileges, knowledge of patient current condition, hospital course, and medical plan of care. Services: Services provided to patient in accordance with Admission requirements found in Title 42 Section 412.3 of the Code of Federal Regulations Patient History Date of Service: 08/07/18 Primary Care Provider: None; Dr. Montero(LASER TECHNICIAN-[place]) Reason for admission: Nausea and vomiting History of Present Illness: 33-year-old female presented to the emergency room with increasing nausea and vomiting. Patient recently diagnosed with miscarriage. She was given Cytotec for the last 2 days. This was given by her skimmer Dr. sheila [place]. Since that time. Patient has had increased nausea vomiting and abdominal pain. Patient came to the ER last night. She was seen and evaluated and sent home. Nausea and vomiting still persists. She is having some abdominal cramping as well. Patient denies any fever, chills, shortness of breath. She is not able to keep anything down. In the ER she was evaluated. Patient given medication for nausea. She was given fluid as well. Nausea persisted. On lab CBC unremarkable. Sodium 139, potassium 3.8. LFTs unremarkable. Beta HCG 33,000. Lipase negative. Abdominal ultrasound unremarkable. CT scan shows edema to the endometrium. Due to her persistent nausea and vomiting patient was admitted for observation. Once all the patient ER, she still had some nausea and abdominal cramping. Mild pain to the epigastric region primarily to the lower pelvic region. Allergies NKDA Allergy (Uncoded 04/10/15 02:59) Unknown No Known Allergies Allergy (Uncoded 01/10/16 03:19) Unknown Home medications list reviewed: Yes Home Medications: Pnv #14/Ferrous Fum/Folic Acid [Nutrinate Tablet Chew] 1 each PO DAILY 12/01/16 Tramadol HCl [Ultram] 50 mg PO Q6HR #20 tablet 12/03/16 - Past Medical/Surgical History Diabetic: No -: Tobacco abuse -: appendectomy 2001 -: tonsilectomy 1994 Psychosocial/ Personal History: Patient is . She has 3 children - Family History Father -: Heart disease, Diabetes, Kidney disease Brother -: Diabetes Mother -: Cancer Notes: Skin cancer, breast cancer, ovarian cancer. Lupus - Social History Smoking Status: Light Tobacco smoker (1-9 cigarettes/day) Counseled patient to stop smoking for: less than 10 minutes Smoking therapy provided: Yes Patient receptive to therapy: Yes Alcohol use: No CD- Drugs: No Caffeine use: Yes Place of Residence: Home Review of Systems General: As per HPI Eyes: Unremarkable ENT: Unremarkable Respiratory: Unremarkable Cardiovascular: Unremarkable Gastrointestinal: Nausea, Vomiting, Abdominal Pain, As per HPI Genitourinary: Unremarkable Musculoskeletal: As per HPI Integumentary: Unremarkable Neurological: Unremarkable Lymphatics: Unremarkable Physical Examination - Physical Exam General: Alert, In no apparent distress, Oriented x3, Cooperative HEENT: Atraumatic, Normocephalic, Other (Dry mucous membranes) Neck: Supple, No Thyromegaly Respiratory: Clear to auscultation bilaterally, Normal air movement Cardiovascular: Normal pulses, Regular rate/rhythm Gastrointestinal: Normal bowel sounds, Soft and benign, Non-distended, No masses , No rebound, No guarding, Tenderness (Minimal pain to the epigastric region. Pain to the pelvic region) Musculoskeletal: No erythema, No tenderness, No warmth Integumentary: No tenderness/swelling, No erythema, No warmth, No cyanosis Neurological: Normal speech, Normal strength at 5/5 x4 extr, Normal tone, Normal affect - Studies Laboratory Data (last 24 hrs) 08/07/18 10:20: Creatinine 0.46 L 08/07/18 10:20: WBC 9.6, Hgb 14.4, Hct 42.3, Plt Count 243 08/07/18 10:20: Sodium 139, Potassium 3.8, BUN 11, Creatinine 0.47 L, Glucose 116 H, Total Bilirubin 0.7, AST 8 L, ALT 18, Alkaline Phosphatase 44 L, Lipase 123 Assessment and Plan - Plan Impression: Intractable nausea and vomiting with abdominal pain likely related to medication and miscarriage Increase vaginal bleeding secondary to miscarriage Likely underlying GERD Tobacco abuse Plan: Intractable nausea and vomiting with abdominal pain likely related to medication and miscarriage: Patient will be admitted for observation. Will continue with aggressive IV fluids. Will provide medication for nausea. Will provide medication options for pain. Recommend to continue with oral medication and limit IV pain medication. Will monitor overnight. Will also provide IV Protonix twice daily. Side effect of Cytotec includes gastritis. Will advance diet as tolerated. I will turn the service over to Dr. Gonzalez tomorrow. I will go over the plan of care with her. Anticipate discharge tomorrow. Increase vaginal bleeding secondary to miscarriage: Will provide menstrual pads for the patient. Increased vaginal bleeding and N/V related to medication -Cytotec. Case discussed with gynecology. Current side effects confirmed with Ob?TECHNICAL EDITOR. Likely underlying GERD: Will provide IV Protonix. This can be continued at discharge. Tobacco abuse: Lifestyle modifications occasion provided. Will provide tobacco cessation. Will provide nicotine patch as needed. Patient may not go outside to smoke. Discharge Plan: Home Plan to discharge in: 24 Hours - Advance Directives Does patient have a Living Will: No Does patient have a Durable POA for Healthcare: No - Code Status/Comfort Care Code Status Assessed: Yes (Patient is full code.) Time Spent Managing Pts Care (In Minutes): 55
[2018-08-07] MEDS ORDERED: SODIUM CHLORIDE 0.9% 10ML INJ IV PRN (18:11)
[2018-08-07] MEDS ORDERED: ACETAMINOPHEN 500 MG TAB PO PRN (18:11)
[2018-08-07] MEDS: MORPHINE 2 MG/ML SYR IV PRN (19:15)
[2018-08-07] MEDS: NA CHLORIDE 0.9% 1,000 ML IV SCH (19:18)
[2018-08-07 20:42] VITALS: BMI 21.4
[2018-08-07] MEDS: PANTOPRAZOLE 40 MG INJ IVP SCH (20:48)
[2018-08-07] MEDS: HYDROCODONE/APAP 7.5/325 MG TAB PO PRN (20:48)
[2018-08-07] MEDS: ONDANSETRON 4 MG/2 ML VIAL IV PRN (20:49)
[2018-08-08] MEDS: NA CHLORIDE 0.9% 1,000 ML IV SCH ×3 (03:56→20:39)
[2018-08-08] MEDS: HYDROCODONE/APAP 7.5/325 MG TAB PO PRN ×2 (03:57→15:03)
[2018-08-08] MEDS: ONDANSETRON 4 MG/2 ML VIAL IV PRN ×3 (03:58→18:39)
[2018-08-08 05:34] LABS: Absolute Lymphocytes (CBC) 2.9 K/uL (0.7-4.9); Absolute Monocytes 0.5 K/uL (0.1-1.3); Absolute Neutrophil 3.1 K/uL (1.8-8.0); Basophils % 0.3 % (0-1.3); Eosinophils % 0.7 % (0-4.4); Hematocrit 33.8 % (36.0-45.0); Lymphocytes % 43.7 % (15.3-44.8); Monocytes % 8.2 % (3.3-12.3); RBC Red Blood Cell Count 3.61 M/uL (3.86-4.86)
[2018-08-08 05:54] LABS: BUN Blood Urea Nitrogen 10 mg/dL (7-18); Bicarbonate 22 mmol/L (21-32); Glucose Level 84 mg/dL (74-106); Potassium 3.5 mmol/L (3.5-5.1); Sodium Level 140 mmol/L (136-145)
[2018-08-08 06:02] LABS: Urine Appearance CLEAR; Urine Bilirubin NEGATIVE (NEG); Urine Blood 2+ (NEG); Urine Color YELLOW; Urine Glucose NEGATIVE (NEG); Urine Protein NEGATIVE (NEG); Urine Specific Gravity 1.025 (1.005-1.030)
[2018-08-08 06:12] LABS: Urine Microscopic Reflex ORDER UMIC
[2018-08-08 06:20] LABS: Urine RBC <5 /HPF (NONE SEEN)
[2018-08-08 06:21] LABS: Urine Bacteria <20 /HPF (<20); Urine Culture Reflex Order NOT NEEDED
[2018-08-08] MEDS: MORPHINE 2 MG/ML SYR IV PRN (08:13)
[2018-08-08] MEDS ORDERED: POTASSIUM CL SA 10 MEQ TAB PO ONE (09:00)
[2018-08-08] MEDS ORDERED: BISACODYL 10 MG RECTAL SUPP PR ONE (09:23)
[2018-08-08] MEDS: PANTOPRAZOLE 40 MG INJ IVP SCH ×2 (09:26→20:31)
[2018-08-08] MEDS: LIDOCAINE 5% PATCH TOP SCH (09:26)
[2018-08-08] MEDS ORDERED: FLEET ENEMA ADULT PR ONE (10:42)
[2018-08-08] MEDS ORDERED: ALPRAZOLAM 0.25 MG TABLET PO ONE (11:28)
[2018-08-08] MEDS: KETOROLAC 30 MG/ML INJ IV PRN (12:29)
--- NOTE | 2018-08-08 13:18 | P.PN ---
Subjective Date of Service: 08/08/18 Primary Care Provider: None; Dr. Montero(LABEL REMOVER-[place]) Chief Complaint: Nausea and vomiting pt is complaining of abdominal pain and constipation with cramping bisacodyl given and pt had very little BM abdomen is soft with no rigidity or guarding on examination f/up repeat abdominal x-ray to r/o obstruction f/up repeat cbc ,Hgb dropped to 11.6 ,most likley due to vaginal bleeding , will continue to monitor Review of Systems 10-point ROS is otherwise unremarkable Physical Examination - Vital Signs Temperature: 98.1 F Blood Pressure: 104/59 Pulse: 66 Respirations: 17 Pulse Ox (%): 99 - Physical Exam General: Alert, Oriented x3 HEENT: Atraumatic, Normocephalic, PERRLA Neck: Supple, JVD not distended Respiratory: Clear to auscultation bilaterally, Normal air movement Cardiovascular: No edema, Normal pulses, Regular rate/rhythm, Normal S1 S2 Gastrointestinal: Normal bowel sounds, Soft and benign, Non-distended, Tenderness Musculoskeletal: No swelling, No erythema, No tenderness Integumentary: No rashes Neurological: Normal speech, Normal strength at 5/5 x4 extr Assessment And Plan - Plan assessment /plan: nausea/vomiting and abdominal pain CT no evidence of colitis or bowel obstruction could be due to cytotec medication VS viral gastritis continue IVF hydration PPI zofran pain mx -avoid narcotic due to hx of constipation for the last 2 weeks anemia and vaginal bleeding due to miscarriage continue to monitor Hgb pt was receiving cytotec
--- NOTE | 2018-08-08 16:09 | RAD REPORT ---
EXAM DESCRIPTION: RAD - Abdomen W Erect - 08/08/2018 3:41 pm CLINICAL HISTORY: Abdomen pain. FINDINGS: The bowel gas pattern is unremarkable. A large amount of stool is present throughout the colon. Free air is not seen beneath the diaphragm
[2018-08-08] MEDS: DOCUSATE NA 100 MG CAP PO SCH (20:31)
[2018-08-08] MEDS: PROMETHAZINE 25 MG/ML VIAL IV PRN (20:31)
[2018-08-08 23:56] LABS: Absolute Lymphocytes (CBC) 2.3 K/uL (0.7-4.9); Absolute Monocytes 0.5 K/uL (0.1-1.3); Basophils % 0.3 % (0-1.3); Eosinophils % 1.4 % (0-4.4); Hematocrit 33.3 % (36.0-45.0); Lymphocytes % 33.9 % (15.3-44.8); MPV 7.9 fL (7.6-11.3); Monocytes % 6.8 % (3.3-12.3)
[2018-08-09] MEDS: KETOROLAC 30 MG/ML INJ IV PRN ×3 (00:46→21:58)
[2018-08-09] MEDS: PROMETHAZINE 25 MG/ML VIAL IV PRN ×3 (00:47→21:59)
[2018-08-09 01:02] LABS: Barbiturates NEGATIVE (NEGATIVE); Benzodiazepines NEGATIVE (NEGATIVE); Cocaine NEGATIVE (NEGATIVE); METHAMPHETAM NEGATIVE (NEGATIVE); Methadone NEGATIVE (NEGATIVE); Opiates POSITIVE (NEGATIVE); Phencyclidine NEGATIVE (NEGATIVE); THC Cannibis POSITIVE (NEGATIVE)
[2018-08-09] MEDS: TRAMADOL HCL 50 MG TAB PO PRN (05:18)
[2018-08-09 05:58] LABS: BUN Blood Urea Nitrogen 11 mg/dL (7-18); Bicarbonate 22 mmol/L (21-32); Glucose Level 90 mg/dL (74-106); Sodium Level 143 mmol/L (136-145)
[2018-08-09] MEDS ORDERED: FLEET ENEMA ADULT PR ONE (08:41)
[2018-08-09] MEDS ORDERED: MORPHINE 2 MG/ML SYR IV ONE (08:41)
[2018-08-09] MEDS ORDERED: LACTULOSE 20 GM/30 ML UCUP PO ONE (08:41)
[2018-08-09] MEDS: NA CHLORIDE 0.9% 1,000 ML IV ONE ×2 (09:00→11:00)
[2018-08-09] MEDS: DOCUSATE NA 100 MG CAP PO SCH ×2 (09:09→21:59)
[2018-08-09] MEDS: LIDOCAINE 5% PATCH TOP SCH (09:10)
[2018-08-09] MEDS: PANTOPRAZOLE 40 MG INJ IVP SCH ×2 (09:10→21:58)
[2018-08-09] MEDS: NA CHLORIDE 0.9% 1,000 ML IV SCH ×4 (09:18→21:58)
[2018-08-09] MEDS ORDERED: MAGNESIUM CITRATE 300 ML BOT PO SCH ×2 (10:00→17:00)
[2018-08-09] MEDS: ONDANSETRON 4 MG/2 ML VIAL IV PRN ×2 (10:29→18:36)
--- NOTE | 2018-08-09 11:52 | P.PN ---
Subjective Date of Service: 08/09/18 Primary Care Provider: None; Dr. Montero(PROPERTY INSPECTOR-[place]) Chief Complaint: Nausea and vomiting pt still complaining of abdominal pain and nausea/vomiting abd x-ray showed large amount of stool in the colon discussed with the patient that she needs to have stool softeners and enema and to avoid narcotic pain meds pt is refusing toradol or advil and asking for morphine IV Review of Systems 10-point ROS is otherwise unremarkable Physical Examination - Vital Signs Temperature: 98.1 F Blood Pressure: 104/59 Pulse: 66 Respirations: 17 Pulse Ox (%): 99 - Physical Exam General: Alert, Oriented x3 HEENT: Atraumatic, Normocephalic, PERRLA Neck: Supple, JVD not distended Respiratory: Clear to auscultation bilaterally, Normal air movement Cardiovascular: No edema, Normal pulses, Regular rate/rhythm, Normal S1 S2 Gastrointestinal: Normal bowel sounds, Soft and benign, Non-distended Musculoskeletal: No clubbing, No swelling, No erythema, No tenderness Integumentary: No rashes Neurological: Normal gait, Normal speech, Normal strength at 5/5 x4 extr Assessment And Plan - Plan assessment /plan: nausea/vomiting and abdominal pain due to constipation and ongoing miscarriage CT no evidence of colitis or bowel obstruction continue IVF hydration PPI zofran pain mx -avoid narcotic due to hx of constipation for the last 2 weeks lactulose colace pt refusing enema anemia and vaginal bleeding due to miscarriage continue to monitor Hgb pt was receiving cytotec decorating consultant consult dvt ppx not needed pt is ambulating Discharge Plan: Home Plan to discharge in: 24 Hours
[2018-08-09 12:49] LABS: Absolute Lymphocytes (CBC) 1.9 K/uL (0.7-4.9); Absolute Monocytes 0.5 K/uL (0.1-1.3); Absolute Neutrophil 3.9 K/uL (1.8-8.0); Basophils % 0.7 % (0-1.3); Eosinophils % 0.9 % (0-4.4); Hematocrit 32.2 % (36.0-45.0); MPV 8.3 fL (7.6-11.3); Monocytes % 7.8 % (3.3-12.3)
--- NOTE | 2018-08-09 14:15 | CON ---
Date of Consultation: 08/09/2018 Reason: Abdominal pain. History Of Present Illness: The patient is a 33-year-old female, who was admitted 2 days ago with na usea, vomiting, and abdominal pain. She had a miscarriage approximately 5 days ago, was given medica tion for that. She did not have any procedure. She is having vaginal bleeding. She [facility] room with nausea and vomiting. Prior to this admission was discharged and came back as her sy mptoms did not improve. She states that she has not had a bowel movement in 2 weeks. She has done w ell and she is asking for narcotics for her pain. She had an abdominal x-ray done yesterday, which s howed large amount of stool in the colon, more on the right side than the left-sided, no free air. S he had a CAT scan of the abdomen and pelvis, which did not show any acute surgical findings. She did have some edema of the ureter, expected following a miscarriage. She had an ultrasound of the abdom en, which was also unremarkable. Her pain is at 8 right now. She had severe pain when she was getti ng enema, however, she is asking for narcotics to the medical staff. Review of Systems: Otherwise, unremarkable. Past Medical History: Negative. Past Surgical History: Appendectomy and tonsillectomy. Allergies: NONE. Social History: She does not smoke. Drinks occasionally. Family History: Significant for heart disease, diabetes, and kidney disease. Breast cancer in the m other, ovarian cancer and lupus. Physical Examination: Vital Signs: Stable. She is afebrile. General: She is awake, alert, oriented x3. Head and Neck: Cranial nerves 2 through 12 are grossly within normal limits. No neck masses. No JV D. Throat clear. Neck is supple. Chest: Clear. Heart: S1, S2. Abdomen: Soft, slightly distended in the lower abdomen. Minimal tenderness. No rebound, rigidity o r guarding. Extremities: Adequately perfused. Nontender. Neuro: Nonfocal. Laboratory Data: White count is 6.9, there is no left shift. Chemistry reviewed, essentially unrema rkable. Her beta HCG is 33,799, that was on admission. CT of the abdomen, ultrasound, and x-ray as per the [facility]. Assessment: Abdominal pain secondary to constipation associated with nausea, vomiting. Recommendation: At this time, the patient needs bowel regimen. She needs lactulose and magnesium ci trate from above as she did not tolerate enema from below and hopefully this can open her up. Dulcol ax suppository may be of help. On the long-term, she needs to be on a bowel regimen of high-fiber di et, Metamucil, stool softeners. There is no need for any acute surgical intervention. GI consultati on may help as well as an OB consultation, if needed, however, I think when she has adequate bowel mo vements, she will feel much better. Plan of care discussed in detail with Dr. Gonzalez. LISA/CINDY Voice ID: [id number] Report ID: [id number]
[2018-08-09 22:55] VITALS: O2SAT 99
[2018-08-10 00:07] LABS: Absolute Lymphocytes (CBC) 2.6 K/uL (0.7-4.9); Absolute Monocytes 0.6 K/uL (0.1-1.3); Absolute Neutrophil 4.4 K/uL (1.8-8.0); Basophils % 0.2 % (0-1.3); Eosinophils % 1.6 % (0-4.4); Lymphocytes % 33.1 % (15.3-44.8); MPV 8.3 fL (7.6-11.3); Monocytes % 7.9 % (3.3-12.3)
[2018-08-10] MEDS: NA CHLORIDE 0.9% 1,000 ML IV SCH ×2 (02:11→04:25)
[2018-08-10] MEDS: TRAMADOL HCL 50 MG TAB PO PRN (04:10)
[2018-08-10] MEDS: PROMETHAZINE 25 MG/ML VIAL IV PRN (04:12)
[2018-08-10] MEDS: KETOROLAC 30 MG/ML INJ IV PRN (08:34)
[2018-08-10] MEDS: ONDANSETRON 4 MG/2 ML VIAL IV PRN (08:35)
[2018-08-10] MEDS: PANTOPRAZOLE 40 MG INJ IVP SCH (08:36)
[2018-08-10] MEDS: LIDOCAINE 5% PATCH TOP SCH (08:36)
[2018-08-10] MEDS: DOCUSATE NA 100 MG CAP PO SCH (08:36)
--- NOTE | 2018-08-10 10:43 | RAD REPORT ---
EXAM DESCRIPTION: RAD - Abdomen 1 View (KUB) - 08/10/2018 10:26 am CLINICAL HISTORY: Abdomen pain. FINDINGS: The bowel gas pattern is unremarkable. Moderate amount of stool suspected within the colon No significant abnormal calcification is displayed
--- NOTE | 2018-08-10 11:16 | P.DS ---
Admission Date: 08/07/18 Discharge Date: 08/10/18 Primary Care Provider: None; Dr. Montero(HE[facility] [place]) Reason for Admission: Nausea and vomiting Consultations: General surgery OBGYN - Problems (1) Intractable nausea and vomiting Current Visit: Yes Status: Resolved Qualifiers: Vomiting type: unspecified Qualified Code(s): R11.2 - Nausea with vomiting , unspecified (2) Constipation Current Visit: Yes Status: Acute Qualifiers: Constipation type: drug induced constipation Qualified Code(s): K59.03 - Drug induced constipation (3) History of miscarriage, not currently Current Visit: Yes Status: Acute Brief History of Present Illness: 33-year-old female presented to the emergency room with increasing nausea and vomiting. Patient recently diagnosed with miscarriage. She was given Cytotec for the last 2 days. This was given by her gynecologist Dr. sheila Conner. Since that time. Patient has had increased nausea vomiting and abdominal pain. Patient came to the ER last night. She was seen and evaluated and sent home. Nausea and vomiting still persists. She is having some abdominal cramping as well. Patient denies any fever, chills, shortness of breath. She is not able to keep anything down. In the ER she was evaluated. Patient given medication for nausea. She was given fluid as well. Nausea persisted. On lab CBC unremarkable. Sodium 139, potassium 3.8. LFTs unremarkable. Beta HCG 33,000. Lipase negative. Abdominal ultrasound unremarkable. CT scan shows edema to the endometrium. Due to her persistent nausea and vomiting patient was admitted for observation. Once all the patient ER, she still had some nausea and abdominal cramping. Mild pain to the epigastric region primarily to the lower pelvic region. Allergies Hospital Course: Overall during the hospital stay patient remained stable Patient was initially admitted to the hospital for intractable nausea vomiting along with abdominal pain and cramping after she received Cytotec for her . Patient stated that about 2 days ago she received Cytotec after which she started having some abdominal cramping along with an intractable nausea vomiting. Patient was admitted to the hospital started on IV Zofran along with Phenergan and general surgery and gynecologist was consulted. Abdominal CT was negative for any acute abnormality however noticed to have a large amount of stool which was also confirmed by abdominal x-ray. General surgery recommended enemas along with high-fiber diet here in the hospital. Patient was also seen by OBGYN who stated that patient's symptoms are most likely secondary to constipation secondary to opioid use and she does not require any further interventions at this time. Patient is intractable nausea vomiting did resolve while here in the hospital. Patient however continued to have abdominal cramping for which she kept on asking for IV morphine here in the hospital. Patient was educated extensively on the need to refrain using pain medication as it is causing her to have constipation. Patient refused to get enemas if she was not going to get any IV morphine at that time patient was offered oral milk of Mag. Patient also refused that here in the hospital. Patient received 1 suppository after which she had a bowel movement. Repeated KUB was showing marked improvement and thus patient was discharged home under stable condition. Patient was asked to follow up with primary care provider along with the GI doctor followup post discharge. Patient demonstrate understanding and thus was discharged home under stable condition. Vital Signs/Physical Exam: Temp Pulse Resp BP Pulse Ox 98.9 F 59 18 98/49 L 99 08/10/18 08:00 08/10/18 08:00 08/10/18 08:00 08/10/18 08:00 08/10/18 08:00 General: Alert, In no apparent distress HEENT: Atraumatic, PERRLA, EOMI Neck: Supple, JVD not distended Respiratory: Clear to auscultation bilaterally, Normal air movement Cardiovascular: Regular rate/rhythm, Normal S1 S2 Gastrointestinal: Normal bowel sounds, No tenderness Musculoskeletal: No tenderness Integumentary: No rashes Neurological: Normal speech, Normal tone, Normal affect Lymphatics: No axilla or inguinal lymphadenopathy Laboratory Data at Discharge: WBC 7.7 K/uL (4.3-10.9) D 08/09/18 23:45 Hgb 11.4 g/dL (12.0-15.0) L 08/09/18 23:45 Hct 34.0 % (36.0-45.0) L 08/09/18 23:45 Plt Count 187 K/uL (152-406) 08/09/18 23:45 Sodium 143 mmol/L (136-145) 08/09/18 05:07 Potassium 4.0 mmol/L (3.5-5.1) 08/09/18 05:07 BUN 11 mg/dL (7-18) 08/09/18 05:07 Creatinine 0.41 mg/dL (0.55-1.3) L 08/09/18 05:07 Glucose 90 mg/dL (74-106) 08/09/18 05:07 Magnesium 2.0 mg/dL (1.8-2.4) 08/08/18 05:14 Total Bilirubin 0.7 mg/dL (0.2-1.0) 08/07/18 10:20 AST 8 U/L (15-37) L 08/07/18 10:20 ALT 18 U/L (12-78) 08/07/18 10:20 Alkaline Phosphatase 44 U/L (45-117) L 08/07/18 10:20 Lipase 123 U/L (73-393) 08/07/18 10:20 Home Medications: Promethazine Suppos [Phenergan -Suppos*] 12.5 mg RC Q6H 08/07/18 Patient Discharge Instructions: Please followup with PCP in about 1-2 days post discharge. Please follow up with GI doctor in about 1-2 weeks post discharge as well. No new medication. Here and her HD diet that is high in fiber refrain from using any opioids at home which may cause you to have further constipation. Diet: High-fiber diet Activity: Ad kaci Followup: Angel George MD [ACTIVE - CAN ADMIT] - 1 Week
[2018-08-10 12:21] VITALS: BP 107/64; TEMP 98.3
--- NOTE | 2018-08-10 13:13 | CON ---
A 33-year-old female, in 2 weeks no bowel movements, went to a doctor in [place] for first-trimester incomplete at 5 weeks, given Cytotec, still having some bleeding, but nothing dramatic. Marjorie dias has not shown anything in the pelvis. Today, she is distended. She looks like she is about 24 weeks' and very tympanic. No CVA tenderness. She had episode prior to admission of vomitin g for quite a while and then the constipation. I think basically she has GI problems and Dr. Bryan should probably be consulted. I would continue to give her until she is less distended an d has basically cleared everything out. I do not think anything gynecologic is going on. We discuss ed diagnostic laparoscopy, but I do not think that would be needed at this point. Full discussion wi th the patient and that is my recommendation . RHONDA/CINDY Voice ID: [id number] Report ID: [id number]
== END 2018-08-10 14:42 | disposition home or self-care (01) | DRG 392 ==
LOC: ER 09:23 → ERHOLD 16:20 → OBSVTOIN 16:20 → 4TH 17:59
PROVIDERS: ADMIT Family Medicine; ATTEND Family Medicine
DX: R11.2 Nausea with vomiting, unspecified (principal); K59.00 Constipation, unspecified; O03.6 Delayed or excessive hemorrhage following complete or unspecified spontaneous abortion; F17.210 Nicotine dependence, cigarettes, uncomplicated
CPT/HCPCS: 36415; 70450; 74018; 74019; 74177; 76705; 80048; 80076; 80307; 81003; 81015; 81025; 83690; 83735; 84702; 85025; 96365; 96367; 96374; 99284; 99285; C9113; J2270; J2405; J2550; J2765; J3010; J7030; Q9967

== ENCOUNTER 2019-05-27 05:34 | Emergency (ER) | payer OTHER ==
--- NOTE | 2019-05-27 06:51 | ER ---
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 Coronavirus screen: The patient has NOT traveled to a country currently being monitored by the [facility] within the last 14 days. The patient has NOT had contact with any known and/or suspected case of coronavirus. Ebola Screen: No symptoms or risks identified at this time. Initial Sepsis Screen: Does the patient meet any 2 criteria? No. Patient's initial sepsis screen is negative. Does the patient have a suspected source of infection? No. Patient's initial sepsis screen is negative. Risk Assessment: Do you want to hurt yourself or someone else? Patient reports no desire to harm self or others. Onset of symptoms was May 27, 2019. 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 - Social history:: Smoking status: Patient reports the use of cigarette tobacco products, smokes one pack cigarettes per day. Screenin:47 Abuse screen: Denies threats or abuse. Denies injuries from another. Nutritional lp1 screening: No deficits noted. Tuberculosis screening: No symptoms or risk factors identified. Fall Risk None identified. Assessment: 06:01 General: Appears in no apparent distress. comfortable, Behavior is calm, cooperative. rv Pain: Complains of pain in HEAD. Neuro: Level of Consciousness is awake, alert, obeys commands, Oriented to person, place, time, situation, Reports headache. Cardiovascular: Patient's skin is warm and dry. Respiratory: Airway is patent Respiratory effort is even, Breath sounds are clear bilaterally. GI: Patient currently denies nausea, vomiting. EENT: Throat is clear is pink. Vital Signs: 05:46 BP 121 / 84; Pulse 84; Resp 18; Temp 98.1; Pulse Ox 99% on R/A; Weight 61.23 kg; Height lp1 5 ft. 4 in. (162.56 cm); Pain 8/10; 06:55 BP 118 / 86; Pulse 81; Resp 15; Temp 98; Pulse Ox 99% on R/A; rv 05:46 Body Mass Index 23.17 (61.23 kg, 162.56 cm) lp1 ED Course: 05:36 Patient arrived in ED. cl3 05:46 Triage completed. lp1 05:46 Regino Brian, RN is Primary Nurse. rv 05:46 Arm band placed on. lp1 05:47 Patient has correct armband on for positive identification. lp1 06:01 [facility] 06:01 Mark Vaughn MD is Attending Physician. m 06:02 No provider procedures requiring assistance completed. Patient did not have IV access rv during this emergency room visit. 06:02 Flu and/or RSV swab sent to lab. Strep swab sent to lab. rv 06:50 Megha Baird MD is Referral Physician. [facility] Administered Medications: No medications were administered Outcome: 06:50 Discharge ordered by . [facility] 06:56 Discharged to home ambulatory, with family. rv 06:56 Condition: good 06:56 Discharge instructions given to patient, Instructed on discharge instructions, follow up and referral plans. medication usage, Demonstrated understanding of instructions, follow-up care, medications, Prescriptions given X 1. 06:56 Patient left the ED. rv Signatures: Antonio Medel PA PA jmm Pena, Laura, RN RN lp1 Regino Brian, PATRICIA RN rv Miguel A Roas cl3
--- NOTE | 2019-05-27 06:51 | EDPHYS ---
Physician Documentation [facility] Name: Deirdre Doan Age: 34 yrs Sex: Female : 1985 Arrival Date: 05/27/2019 Time: 05:36 Bed 6 Private MD: ED Physician Mark Vaughn HPI: 05/26 06:11 This 34 yrs old Female presents to ER via Ambulatory with complaints of Sore [facility] Throat. 06:11 The patient presents with sore throat. Onset: The symptoms/episode began/occurred this jmm morning. Modifying factors: The symptoms are alleviated by nothing, the symptoms are aggravated by nothing. Associated signs and symptoms: Pertinent positives: cough, Pertinent negatives fever. This is a 34 year old female with no chronic medical conditions that presents to the ED with complaints of left sided neck swelling. Patient states she awoke this morning in a cold sweat with pain to her throat. Patient also complains of a mild cough. . 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 - Social history:: Smoking status: Patient reports the use of cigarette tobacco products, smokes one pack cigarettes per day. ROS: 06:11 Constitutional: Negative for fever, chills, and weight loss, Cardiovascular: Negative [facility] for chest pain, palpitations, and edema, Respiratory: Negative for shortness of breath, cough, wheezing, and pleuritic chest pain. 06:11 ENT: Positive for sore throat. 06:11 Neck: Positive for swelling. 06:11 All other systems are negative. Exam: 06:11 Constitutional: This is a well developed, well nourished patient who is awake, alert, jmm and in no acute distress. Head/Face: atraumatic. Eyes: EOMI, no conjunctival erythema appreciated 06:11 Neck: Trachea midline, Supple Chest/axilla: Normal chest wall appearance and motion. 06:11 Abdomen/GI: Non distended, soft Back: Normal ROM Skin: General appearance color normal 06:11 MS/ Extremity: Moves all extremities, no obvious deformities appreciated, no edema noted to the lower extremities Neuro: Awake and alert, normal gait 06:11 ENT: Posterior pharynx: erythema, that is mild. 06:11 Neck: External neck: swelling, that is moderate, of the left submandibular area, ROM/movement: is normal, Lymph nodes: lymphadenopathy is appreciated, anterior cervical nodes. 06:11 Cardiovascular: Rate: normal, Rhythm: regular. 06:11 Respiratory: the patient does not display signs of respiratory distress, Respirations: normal, Breath sounds: are clear throughout. Vital Signs: 05:46 BP 121 / 84; Pulse 84; Resp 18; Temp 98.1; Pulse Ox 99% on R/A; Weight 61.23 kg; Height lp1 5 ft. 4 in. (162.56 cm); Pain 8/10; 06:55 BP 118 / 86; Pulse 81; Resp 15; Temp 98; Pulse Ox 99% on R/A; rv 05:46 Body Mass Index 23.17 (61.23 kg, 162.56 cm) lp1 MDM: 06:11 Patient medically screened. [facility] 06:48 Data reviewed: vital signs, nurses notes. Counseling: I had a detailed discussion with mumtaz the patient and/or guardian regarding: the historical points, exam findings, and any diagnostic results supporting the discharge/admit diagnosis, lab results, the need for outpatient follow up, to return to the emergency department if symptoms worsen or persist or if there are any questions or concerns that arise at home. ED course: Patient is alert and non toxic in appearance in the ED. No erythema. Most likely sialadenitis. Area is non tender to palpation. I do not suspect Hira's. Patient is advised to follow up with ENT for reevaluation. Patient otherwise given strict return precautions. Patient understood and agrees with the plan of care. . 05/26 06:01 Order name: Flu; Complete Time: 06:48 rv 05/26 06:01 Order name: Strep; Complete Time: 06:36 rv 05/26 06:32 Order name: Throat Culture EDMS Administered Medications: No medications were administered Disposition: 10:53 Co-signature as Attending Physician, Mark Vaughn MD I agree with the assessment and tw4 plan of care. Disposition: 05/27/19 06:50 Discharged to Home. Impression: Sialoadenitis, Acute pharyngitis. - Condition is Stable. - Discharge Instructions: Pharyngitis. - Prescriptions for Augmentin 875- 125 mg Oral Tablet - take 1 tablet by ORAL route every 12 hours for 10 days; 20 tablet. - Medication Reconciliation Form, Thank You Letter, Antibiotic Education, Prescription Opioid Use form. - Follow up: Megha Baird MD; When: 2 - 3 days; Reason: Recheck today's complaints, Continuance of care, Re-evaluation by your physician. Signatures: Dispatcher [employer] EDMS Antonio Medel PA PA jmm Pena, Laura, RN RN lp1 Mark Vaughn MD MD tw4 Regino Brian RN RN rv Corrections: (The following items were deleted from the chart) 06:56 06:50 05/27/2019 06:50 Discharged to Home. Impression: Sialoadenitis; Acute rv pharyngitis. Condition is Stable. Forms are Medication Reconciliation Form, Thank You Letter, Antibiotic Education, Prescription Opioid Use. Follow up: Megha Baird; When: 2 - 3 days; Reason: Recheck today's complaints, Continuance of care, Re-evaluation by your physician. mumtaz
[2019-05-27 07:04] VITALS: O2SAT 99
[2019-05-27 07:06] VITALS: BP 118/86; TEMP 98
== END 2019-05-27 06:56 | disposition home or self-care (01) ==
LOC: ER 05:34
DX: K11.20 Sialoadenitis, unspecified (principal); F17.210 Nicotine dependence, cigarettes, uncomplicated
CPT/HCPCS: 87070; 87081; 87804; 99283

== ENCOUNTER 2021-05-20 11:42 | Emergency (ER) | payer OTHER ==
--- OUTSIDE RECORDS SUMMARY | 2021-05-20 11:45 | XMS REPORT | Continuity of Care Document ---
:1985 Author Organization [facility] t Address [address] [place] [address] [address]. [address] [place] [address] Care Team Providers Name Role Phone Jerome Attending Clinician Unavailable Flako VALDIVIA Attending Clinician Unavailable Flako Valdivia MD Attending Clinician Doctor Unassigned, Name Attending Clinician Unavailable Bing Attending Clinician Unavailable Jerome Admitting Clinician Unavailable Bing Admitting Clinician Unavailable Payers Payer Name Policy Type Policy Number Effective Date Expiration Date S facundo [facility] [id number] 2015 CHOICE MEDICAID 00:00:00 [facility] [id number] CHOICE (MEDICAID REPLACEMENT - [place]) [place] [id number] [place] Advance Directives Directive Decision Effective Termination Comments Source Date Date Healthcare Agents on N/A [facility] ersity FileNameRelationshipHealthcare [facility] Agent Medical RelationshipCommunicationSt. [facility] [phone] (Home) Problems This patient has no known problems. Allergies, Adverse Reactions, Alerts Allergy Allergy Status Severity Reaction(s) Onset Inactive Treating Comm ents Source Name Type Date Date Clinician NO KNOWN Drug Active Univers ALLERGIE Class ity of S [facility] No Known DA Active [facility] Patient s [facility] Social History Social Habit Start Date Stop Date Quantity Comments Source History of tobacco Cigarette Smoker [place] of use [facility] ASSERTION [facility] Sex Assigned At Universit y of [facility] Exposure to Not sure [facility] SARS-CoV-2 (event) [facility] Cigarettes smoked 2020-04-05 2020-04-05 Univers ity of current (pack per 00:00:00 00:00:00 [facility] edical ) - Reported Branch Cigarette 2020-04-05 2020-04-05 University of pack-years 00:00:00 00:00:00 [facility] Tobacco use and 2020-04-05 2020-04-05 Never used [facility] y of exposure 00:00:00 00:00:00 [facility] Alcohol intake 2020-04-05 2020-04-05 Ex-drinker [facility] 00:00:00 00:00:00 (finding) [facility] Smoking Status Start Date Stop Date Source Unknown if ever smoked [facility] Current every day smoker 2020-04-05 00:00:00 [facility]ations Ordered Filled Start Stop Current Ordering Indication Dosage Frequency Signature Comments Components Source Medication Medication Date Date Medication? Clinician (SIG) Name Name No known No [facility] medications [facility] Vital Signs Vital Name Observation Time Observation Value Comments Source Systolic blood 2020-04-05 15:46:00 106 mm[Hg] Univer sity pressure [facility] Diastolic blood 2020-04-05 15:46:00 68 mm[Hg] [facility] 2020-04-05 15:46:00 70 /min [facility] Body temperature 2020-04-05 15:46:00 36.72 Lidia [facility] Respiratory rate 2020-04-05 15:46:00 18 /min [facility] Body height 2020-04-05 15:46:00 162.6 cm [facility] Body weight 2020-04-05 15:46:00 59.603 kg [facility] BMI 2020-04-05 15:46:00 22.55 kg/m2 [facility] Procedures Procedure Date / Time Performed Performing Clinician Sour e ASSIGNMENT OF BENEFITS 2020-04-05 15:30:21 Doctor Unassigned, No [facility] Branch Encounters Start End Encounter Admission Attending Care Care Encounter Source Date/Time Date/Time Type Type Clinicians Facility Department ID 2021-01-25 2021-01-25 Outpatient Nguyen_o KYMARCELLO [facility] [id number] [place] 12:34:00 12:34:00 [id number] [facility] 2020-04-19 2020-04-19 Outpatient R ADUM, [facility] [id number] Univers 16:15:00 16:15:00 CLEMENT [id number] ity [facility] 2020-04-19 2020-04-19 Outpatient R AD, [facility] [id number] Univers 16:15:00 16:15:00 CLEMENT [facility] 2020-04-05 2020-04-05 Initial Ad, [facility] [id number] Univers 09:32:11 10:51:01 Clement Fowler [id number] ity of Visit [place] [id number] Lenny pedro Professbryon [phone] [place] [address] 2020-04-05 2020-04-05 Outpatient R AD, [facility] [id number] Univers 09:30:00 09:30:00 CLEMENT [id number] ity [facility] 2020-04-05 2020-04-05 Outpatient R AD, [facility] [id number] Univers 09:30:00 09:30:[facility] 2020-04-05 2020-04-05 Orders Doctor ANDREINA [id number] Univers 00:00:00 00:00:00 Only Unassigned, LEO [id number] ity of [place] [facility] [id number] David as [phone] [address] 2020-02-09 2020-02-09 Outpatient Kevernon_G [facility]G [facility]G [id number] [place] 02:26:00 02:26:00 [id number] [facility] 2018-08-20 2018-08-20 Outpatient [facility] [id number] 08:22:00 08:22:00 -[id number] [facility] Results This patient has no known results.
[2021-05-20] MEDS ORDERED: NA CHLORIDE 0.9% 1,000 ML ONE (12:11)
[2021-05-20] MEDS ORDERED: ONDANSETRON 4 MG/2 ML VIAL ONE (12:11)
[2021-05-20] MEDS ORDERED: MORPHINE 4 MG/ML SYR ONE ×2 (12:11→15:12)
[2021-05-20 12:13] LABS: Absolute Lymphocytes (CBC) 1.1 K/uL (0.7-4.9); Hematocrit 42.5 % (36.0-45.0); Lymphocytes % 17.3 % (15.3-44.8); RBC Red Blood Cell Count 4.63 M/uL (3.86-4.86)
[2021-05-20 12:43] LABS: ALT/SGPT 35 U/L (12-78); AST/SGOT 21 U/L (15-37); Albumin 3.2 g/dL (3.4-5.0); Alkaline Phosphatase 54 U/L (45-117); BUN Blood Urea Nitrogen 10 mg/dL (7-18); Bicarbonate 24 mmol/L (21-32); Bilirubin Total 0.2 mg/dL (0.2-1.0); Glucose Level 101 mg/dL (74-106); Lipase 82 U/L (73-393); Protein, Total 6.1 g/dL (6.4-8.2); Sodium Level 137 mmol/L (136-145)
[2021-05-20 12:46] LABS: Bilirubin Direct < 0.1 mg/dL (0-0.2)
--- NOTE | 2021-05-20 13:25 | RAD REPORT ---
EXAM DESCRIPTION: CT - Soft Tissue Neck W/Contr CLINICAL HISTORY: right submandibular pain COMPARISON: No comparisons TECHNIQUE All CT scans are performed using dose optimization technique as appropriate and may includ e automated exposure control or mA/KV adjustment according to patient size. FINDINGS: Nasopharyngeal tissues are normal in appearance. Fossa Rosenmller are normal. Parapharyngeal fat triangles are symmetric. Tongue base structures are normal. Epiglottis and aryepiglottic folds are normal. Piriform sinuses are well aerated. The vocal cords are normal in appearance. Salivary glands are normal in appearance. Upper lung burnette are clear. Included intracranial contents are unremarkable. Soft tissue swelling along the right aspect of the face. Periapical lucency associated with right man dibular premolar. No fluid collection is identified. IMPRESSION: Periapical lucency associated with a right mandibular premolar with overlying subcutaneo us edema. No abscess identified.
[2021-05-20] MEDS ORDERED: FENTANYL CITR 100 MCG/2 ML ONE (13:55)
--- NOTE | 2021-05-20 14:38 | ER ---
Nurse's Notes [facility] Name: Deirdre Doan Age: 36 yrs Sex: Female : 1985 Arrival Date: 05/20/2021 Time: 11:44 Bed 13 Private MD: Diagnosis: Dental Pain Presentation: 05/20 11:51 Chief complaint: Patient states: R lower jaw pain /swelling since Friday. Started ll1 N/V on Friday. On antibiotics and pain meds that aren't helping since Friday. + fever at home. Coronavirus screen: Vaccine status: Patient reports being unvaccinated. Client denies travel out of the [place] in the last 14 days. At this time, the client does not indicate any symptoms associated with coronavirus-19. Ebola Screen: Patient denies travel to an Ebola-affected area in the 21 days before illness onset. Initial Sepsis Screen: Does the patient meet any 2 criteria? No. Patient's initial sepsis screen is negative. Does the patient have a suspected source of infection? Yes: Other: tooth/mandible pain and swelling. Risk Assessment: Do you want to hurt yourself or someone else? Patient reports no desire to harm self or others. Onset of symptoms was May 16, 2021. 11:51 Method Of Arrival: Ambulatory ll1 11:51 Acuity: ILDA 3 ll1 Historical: - Allergies: 11:51 No Known Allergies; ll1 - PMHx: 11:51 None; ll1 - PSHx: 11:51 Appendectomy; Tonsillectomy; ll1 - Immunization history:: Client reports having NOT received the Covid vaccine. - Social history:: Smoking status: Patient reports the use of cigarette tobacco products, smokes one-half pack cigarettes per day. Screenin:16 Abuse screen: Denies threats or abuse. Denies injuries from another. Nutritional ab2 screening: No deficits noted. Tuberculosis screening: No symptoms or risk factors identified. Fall Risk None identified. Assessment: 12:14 General: Appears in no apparent distress. uncomfortable, Behavior is calm, cooperative, ab2 appropriate for age. Pain: Complains of pain in right jaw Pain currently is 10 out of 10 on a pain scale. Neuro: Level of Consciousness is awake, alert, obeys commands, Oriented to person, place, time, situation, Appropriate for age Director Of Admissions are equal bilaterally Moves all extremities. Gait is steady, Speech is normal, Facial symmetry appears normal. Cardiovascular: No deficits noted. Denies chest pain, shortness of breath, Heart tones S1 S2 present Patient's skin is warm and dry. Respiratory: Airway is patent Respiratory effort is even, unlabored, Respiratory pattern is regular, symmetrical, Breath sounds are clear bilaterally. GI: Abdomen is round Reports intolerance of fluids, intolerance of food, nausea, vomiting. : No deficits noted. No signs and/or symptoms were reported regarding the genitourinary system. EENT: No deficits noted. No signs and/or symptoms were reported regarding the EENT system. Derm: Derm: No deficits noted. No signs and/or symptoms reported regarding the dermatologic system. Musculoskeletal: Swelling present in right jaw. 12:52 Reassessment: Patient appears in no apparent distress at this time. Patient states ab2 morphine helped with pain tremendously. 13:50 Reassessment: Patient appears in no apparent distress at this time. Patient crying and ab2 states jaw pain is at a 10/10 again, ALLEN Medel notified. Vital Signs: 11:51 BP 117 / 77; Pulse 83; Resp 18; Temp 98.4; Pulse Ox 100% ; cs9 11:51 Weight 62.6 kg; Height 5 ft. 3 in. (160.02 cm); Pain 10/10; ll1 12:51 BP 118 / 83; Pulse 69; Resp 16; Pulse Ox 99% on R/A; Pain 4/10; ab2 13:55 BP 113 / 71; Pulse 79; Resp 16; Pulse Ox 98% on R/A; Pain 10/10; ab2 14:41 BP 111 / 68; Pulse 80; Resp 16; Pulse Ox 98% on R/A; ab2 11:51 Body Mass Index 24.45 (62.60 kg, 160.02 cm) ll1 ED Course: 11:44 Patient arrived in ED. ds1 11:47 Antonio Medel PA is PHCP. jmm 11:47 Randolph Ricardo MD is Attending Physician. jmm 11:51 Arm band placed on Patient placed in an exam room, on a stretcher. ll1 11:53 Triage completed. ll1 11:57 Prasanna Pablo is Primary Nurse. ab2 12:13 Inserted saline lock: 20 gauge in right antecubital area, using aseptic technique. ab2 Blood collected. 12:14 Basic Metabolic Panel Sent. ab2 12:14 Hepatic Function Sent. ab2 12:14 Lipase Sent. ab2 12:16 No provider procedures requiring assistance completed. ab2 12:17 Patient has correct armband on for positive identification. Bed in low position. Call ab2 light in reach. Side rails up X2. Adult w/ patient. 13:16 CT Soft Tissue Neck W/contr In Process Unspecified. EDMS 14:37 Nando Rangel DDS is Referral Physician. jmm 15:23 IV discontinued, intact, bleeding controlled, No redness/swelling at site. Pressure ab2 dressing applied. Administered Medications: 12:14 Drug: NS 0.9% 1000 ml Route: IV; Rate: 1 bolus; Site: right antecubital; ab2 14:40 Follow up: Response: No adverse reaction; IV Status: Completed infusion ab2 12:14 Drug: morphine 4 mg Route: IVP; Site: right antecubital; ab2 14:40 Follow up: Response: No adverse reaction ab2 12:14 Drug: Zofran (Ondansetron) 4 mg Route: IVP; Site: right antecubital; ab2 14:40 Follow up: Response: No adverse reaction ab2 13:54 Drug: fentaNYL (PF) 50 mcg Route: IVP; Site: right antecubital; ab2 14:40 Follow up: Response: No adverse reaction ab2 15:00 Drug: Marcaine (bupivacaine) (0.5 %) 10 ml {Note: Administered by ALLEN Medel for nerve ab2 block.} Volume: 10 ml; Route: Infiltration; 15:02 Drug: Promethazine 12.5 mg Route: IVP; Site: right antecubital; ab2 15:14 Drug: morphine 4 mg Route: IVP; Site: right forearm; ab2 Outcome: 14:38 Discharge ordered by . mumtaz 15:23 Discharged to home ambulatory. ab2 15:23 Discharged to home with significant other. 15:23 Condition: good 15:23 Discharge instructions given to patient, significant other, Instructed on discharge instructions, follow up and referral plans. medication usage. 15:23 Demonstrated understanding of instructions, follow-up care, medications, Prescriptions given X 3. 15:24 Patient left the ED. ab2 Signatures: Dispatcher [employer] EDMS Antonio Medel PA PA jmm Sanford, Demi ds1 Astrid Rosa RN RN ll1 Eunice Mehta cs9 Prasanna Pablo ab2
--- NOTE | 2021-05-20 14:38 | EDPHYS ---
Physician Documentation [facility] Name: Deirdre Doan Age: 36 yrs Sex: Female : 1985 Arrival Date: 05/20/2021 Time: 11:44 Bed 13 Private MD: ED Physician Randolph Ricardo HPI: 05/20 11:50 This 36 yrs old Female presents to ER via Ambulatory with complaints of Vomiting, jmm Facial Swelling. 11:50 The patient presents to the emergency department with nausea, vomiting. Onset: The [facility] symptoms/episode began/occurred gradually. 11:50 This is a 36-year-old female with no known chronic medical condition presents emerged [facility] department with complaints of dental pain and swelling to her right jaw. Symptoms began this past Friday and have been constant since. Patient states she has had multiple visits to [place] [facility]. Patient currently on oral antibiotics but states she vomits secondary to pain. Denies shortness of breath. Denies difficulty tolerating secretions. Historical: - Allergies: 11:51 No Known Allergies; ll1 - PMHx: 11:51 None; ll1 - PSHx: 11:51 Appendectomy; Tonsillectomy; ll1 - Immunization history:: Client reports having NOT received the Covid vaccine. - Social history:: Smoking status: Patient reports the use of cigarette tobacco products, smokes one-half pack cigarettes per day. ROS: 11:50 Constitutional: Negative for fever, chills, and weight loss. jmm 11:50 ENT: Positive for dental pain. 11:50 Abdomen/GI: Positive for nausea and vomiting. 11:50 All other systems are negative. Exam: 11:50 Constitutional: This is a well developed, well nourished patient who is awake, alert, jmm and in no acute distress. Head/Face: atraumatic. Eyes: EOMI, no conjunctival erythema appreciated 11:50 Neck: Trachea midline, Supple Chest/axilla: Normal chest wall appearance and motion. Cardiovascular: Regular rate and rhythm. No edema appreciated Respiratory: Normal respirations, no respiratory distress appreciated Abdomen/GI: Non distended, soft Back: Normal ROM Skin: General appearance color normal MS/ Extremity: Moves all extremities, no obvious deformities appreciated, no edema noted to the lower extremities Neuro: Awake and alert Psych: Behavior is normal, Mood is normal, Patient is cooperative and pleasant 11:50 ENT: Dental exam: gum swelling, that is moderate, specifically in the lower right second bicuspid (#29). Vital Signs: 11:51 BP 117 / 77; Pulse 83; Resp 18; Temp 98.4; Pulse Ox 100% ; cs9 11:51 Weight 62.6 kg; Height 5 ft. 3 in. (160.02 cm); Pain 10/10; ll1 12:51 BP 118 / 83; Pulse 69; Resp 16; Pulse Ox 99% on R/A; Pain 4/10; ab2 13:55 BP 113 / 71; Pulse 79; Resp 16; Pulse Ox 98% on R/A; Pain 10/10; ab2 14:41 BP 111 / 68; Pulse 80; Resp 16; Pulse Ox 98% on R/A; ab2 11:51 Body Mass Index 24.45 (62.60 kg, 160.02 cm) ll1 MDM: 11:50 Patient medically screened. [facility] 14:36 Data reviewed: vital signs, nurses notes. Counseling: I had a detailed discussion with mumtaz the patient and/or guardian regarding: the historical points, exam findings, and any diagnostic results supporting the discharge/admit diagnosis, lab results, radiology results, the need for outpatient follow up, to return to the emergency department if symptoms worsen or persist or if there are any questions or concerns that arise at home. ED course: Patient is alert nontoxic in appearance NAD. CT did not reveal an abscess. Will change antibiotic to clindamycin and patient is advised to follow-up with oral surgery. Patient otherwise given strict return precautions. Patient understood agrees plan of care.. 05/20 11:56 Order name: Basic Metabolic Panel; Complete Time: 12:48 [facility] 05/20 11:56 Order name: CBC with Diff; Complete Time: 12:15 [facility] 05/20 11:56 Order name: Hepatic Function; Complete Time: 12:48 [facility] 05/20 11:56 Order name: Lipase; Complete Time: 12:48 [facility] 05/20 11:58 Order name: CT Soft Tissue Neck W/contr; Complete Time: 13:30 [facility] 05/20 11:56 Order name: IV Saline Lock; Complete Time: 12:06 [facility] 05/20 11:56 Order name: Labs collected and sent; Complete Time: 12:06 [facility] Administered Medications: 12:14 Drug: NS 0.9% 1000 ml Route: IV; Rate: 1 bolus; Site: right antecubital; ab2 14:40 Follow up: Response: No adverse reaction; IV Status: Completed infusion ab2 12:14 Drug: morphine 4 mg Route: IVP; Site: right antecubital; ab2 14:40 Follow up: Response: No adverse reaction ab2 12:14 Drug: Zofran (Ondansetron) 4 mg Route: IVP; Site: right antecubital; ab2 14:40 Follow up: Response: No adverse reaction ab2 13:54 Drug: fentaNYL (PF) 50 mcg Route: IVP; Site: right antecubital; ab2 14:40 Follow up: Response: No adverse reaction ab2 15:00 Drug: Marcaine (bupivacaine) (0.5 %) 10 ml {Note: Administered by ALLEN Medel for nerve ab2 block.} Volume: 10 ml; Route: Infiltration; 15:02 Drug: Promethazine 12.5 mg Route: IVP; Site: right antecubital; ab2 15:14 Drug: morphine 4 mg Route: IVP; Site: right forearm; ab2 Disposition: 05/21 09:13 Co-signature as Attending Physician, Randolph Ricardo MD I agree with the assessment and [facility] plan of care. Disposition Summary: 05/20/21 14:38 Discharge Ordered Location: Home [facility] Condition: Stable [facility] Diagnosis - Dental Pain [facility] Followup: [facility] - With: Nando Rangel DDS - When: 2 - 3 days - Reason: Recheck today's complaints, Continuance of care, Re-evaluation by your physician Discharge Instructions: - Discharge Summary Sheet [facility] - Dental Pain [facility] Forms: - Medication Reconciliation Form [facility] - Thank You Letter [facility] - Antibiotic Education [facility] - Prescription Opioid Use [facility] Prescriptions: - Clindamycin HCl 300 mg Oral Capsule - take 1 capsule by ORAL route every 6 hours for 10 days; 40 capsule; Refills: 0, [facility] Product Selection Permitted - orphenadrine citrate 100 mg Oral Tablet Sustained Release - take 1 tablet by ORAL route 2 times per day As needed; 20 tablet; Refills: 0, [facility] Product Selection Permitted - promethazine 25 mg Oral Tablet - take 1 tablet by ORAL route every 6 hours As needed; 30 tablet; Refills: 0, jmm Product Selection Permitted Signatures: Dispatcher [employer] Antonio Corey PA PA jmm Lewis, Lynsay, RN RN ll1 Prasanna Pablo2 Randolph Ricardo MD MD [id number]
[2021-05-20] MEDS ORDERED: BUPIVACAINE 0.5% PF 10 ML VIAL ONE (14:45)
[2021-05-20] MEDS ORDERED: PROMETHAZINE INJ 25 MG/ML AMP ONE (14:59)
[2021-05-20 15:31] VITALS: TEMP 98.4
[2021-05-20 15:33] VITALS: O2SAT 98
[2021-05-20 15:35] VITALS: BP 111/68
== END 2021-05-20 15:24 | disposition home or self-care (01) ==
LOC: ER 11:42
DX: K08.89 Other specified disorders of teeth and supporting structures (principal); R11.2 Nausea with vomiting, unspecified; F17.210 Nicotine dependence, cigarettes, uncomplicated
CPT/HCPCS: 85025; 80048; 36415; 80076; 83690; 70491; 99284; Q9967; J2550; J3010; J7030; J2405